=== PATIENT | male | born 1945 | race Caucasian/White ===

== ENCOUNTER → 2022-11-29 | Outpatient (CLI) | payer OTHER ==
[2022-11-29 13:35] VITALS: BP 120/65; PULSE 56; RESP 18; TEMP 98.3
--- NOTE | 2022-11-29 15:24 | P.PAINPG ---
PQRS Measure Charge Sheet Comment: HISTORY OF PRESENT ILLNESS: 77 yr old male as a referral from [facility] presents today w severe and chronic LBP secondary to DDD, spondylosis and facet arthropathy without myelopathy for evaluation. Pt states pain level is provoked at 7/10 in intensity, constant, localized in the lower lumbar spine, achy in character w shooting pain towards . Pain is provoked by standing, lifting, bending. Pain is alleviated by PT x 6 wks in May 2022 which provoked pain, heat, medications (Tyl, Mobic, Neurontin), topical, repositioning, sitting and rest. PMH: OA, HTN, Hyperlipidemia, BPH, GERD, Seasonal Allergies, MDD PSH: L4-L5 Laminectomy w Fusion x2, L5-S1 Hardware SH: Occasional ETOH use, No tobacco use, No illicit drug use. and lives w spouse. Exposed to [employer] in 1965 FH: Non contributory All: See list Meds: See list REVIEW OF ORGAN SYSTEMS: CONSTITUTIONAL: No fevers or chills. No recent weight loss. NEUROLOGICAL: + numbness and tingling along the distal extremities. No seizure disorders or headaches. MUSCULOSKELETAL: + pain PSYCHIATRIC: Denies current depression or suicidal thoughts. Physical Examinations : Constitutional : Cooperative , not in acute distress . Neurologic : Cranial nerve II to XII intact. No focal neurological deficits. Psychiatric : alert & oriented x 3. Matching mood & appropriate affect. Judgment & insight intact. Musculoskeletal : Cervical Spine Motor strength in the deltoid and biceps: Normal right side. Normal Left side Motor strength biceps and the wrist extensors: Normal right side . Normal left side Motor strength in the triceps muscle: Normal right side. Normal left side Deep tendon reflexes: Normal at the biceps. Normal at Brachioradialis. Normal at triceps Vertebral body tenderness to deep palpation over Cervical facet loading test: positive bilaterally Spurling test: positive bilaterally Neck distraction test: positive bilaterally Capo sign: positive bilaterally Lumbar spine Motor strength lower extremities ,thigh and legs 5/5 Right side , 5/5 Left side Deep tendon reflexes : Normal Knee Jerk. Normal Ankle Jerk Vertebral body tenderness over L4 Lumbar facet Loading Test: positive Right / positive Left Range of motion of the lumbar spine Flexion 30 degrees, extension 10 degrees Straight Leg Raise test: Left/ Right positive at 30 degree BL Foot drop Dimitris test: positive right / positive left. Severe tenderness over the Sacroiliac joint on the Right / Left sides Anusha test: positive bilaterally Seated flexion test: positive bilaterally. Sacral spine : Severe tenderness over the Sacroiliac joint: right side / left side Range of motion: Flexion of the lumbar spine <60 degrees Range of motion: Extension of the lumbar spine <20 degrees Gaenslen's Test positive Justo's Test positive Dimitris test: positive right side / left side Thigh Thrust Test Sacral Thrust Test Imaging: MRI non contrast of the lumbar spoine from 06/27/22 reviewed Assessment/ Plan : LumbaR DDD Recommendation of SOHAN L4-L5 #1. May need a series fo injections for optimal pain relief. Risks, benefits of procedure discussed and patient verbalized understanding. Admits to aspirin or anti- coagulant use or medical history of diabetes. Protocol for discontinuation/ continuation of medications ramone procedure discussed. All questions answered. I have spent greater than 30 minutes on patient care today. Dr Loyola was available by phone for the evaluation of this patient. The time was used to review the medical records including relevant urine studies and Prescription history (MAPs), review of the available imaging, evaluation and examination of the patient, coordination of care with the medical staff and if applicable referring physicians, as well as creation of the medical record Home Medications: Ambulatory Orders Aspirin [Adult Low Dose Aspirin EC] 81 mg PO DAILY 11/29/22 Controlled Substance Measures - Controlled Substance Measures Is patient prescribed a controlled substance at discharge?: No
== END | disposition home or self-care (01) ==
LOC: PNWHC3 12:45
PROVIDERS: ATTEND Specialist
DX: M51.36 Other intervertebral disc degeneration, lumbar region (principal); M47.816 Spondylosis without myelopathy or radiculopathy, lumbar region; E11.9 Type 2 diabetes mellitus without complications; I10 Essential (primary) hypertension; E78.5 Hyperlipidemia, unspecified; N40.0 Benign prostatic hyperplasia without lower urinary tract symptoms; K21.9 Gastro-esophageal reflux disease without esophagitis; M19.90 Unspecified osteoarthritis, unspecified site; F32.9 Major depressive disorder, single episode, unspecified; J30.2 Other seasonal allergic rhinitis
CPT/HCPCS: 99202

== ENCOUNTER 2022-12-21 10:06 | Day surgery (SDC) | payer OTHER ==
[2022-12-20 12:51] VITALS: BMI 30.9
[~2022-12-21 10:06] MED LIST: LACTATED RINGERS 1,000 ML IV SCH; LIDOCAINE 1% (10MG/ML) FOR IV START INTRADERMA PRN
[2022-12-21 10:29] VITALS: TEMP 97.8
[2022-12-21] MEDS ORDERED: MIDAZOLAM 2 MG/2 ML VIAL ONE (10:36)
[2022-12-21] MEDS ORDERED: methylPREDNISolone ACETATE 40 MG/ML 1 ML VIAL ONE (10:36)
[2022-12-21] MEDS ORDERED: IOPAMIDOL M200 10 ML VIAL ONE (10:36)
[2022-12-21] MEDS ORDERED: fentaNYL (PF) 50 MCG/ML 2 ML AMP ONE (10:36)
--- NOTE | 2022-12-21 10:47 | P.PCN ---
Date of Procedure: 12/21/22 Procedure(s) Performed: PREOPERATIVE DIAGNOSIS: 1- Lumbar Degenerative Disc Diseases 2-Lumbar spondylosis with Facet arthropathy without myelopathy. 3-lumbar failed back surgery syndrome POSTOPERATIVE DIAGNOSIS: 1-lumbar degenerative disc disease. 2-lumbar spondylosis with facet arthropathy without myelopathy. 3-lumbar failed back surgery syndrome. PROCEDURE 1. Lumbar epidural steroid injection under fluoroscopic guidance at the L4-5 level. (Fluoroscopy imaging was available in radiology department) 2. Lumbar epidurogram. ANESTHESIA: moderate sedation with intravenous Versed 1 mg ,and fentanyle 50 Mcg Sedation start time : 1036 Sedation end time : 1044 EBL: Minimal PROCEDURE INDICATION: The patient with low back pain and radiculitis symptoms unresponsive to conservative treatment. Fluoroscopy was used to optimize visualization of the needle placement and to maximize safety. PROCEDURE DESCRIPTION / TECHNIQUE: The patient was seen and identified in the preoperative area. Risks, benefits, complications including but not limited to infections ,bleeding ,allergic reaction to the medications ,nerve damage and not complete pain releife , and alternatives were discussed with the patient. The patient agreed to proceed with the procedure and signed the consent. IV was started, and vital signs were stable. Patient was taken to the OR and time out was completed. The patient was placed in the prone position on procedure table and a pillow was placed under the abdomen to reduce lumbar lordosis. The lumbosacral area was prepped and draped in the usual sterile fashion.ere closely monitored during the procedure. Conscious sedation was used during the procedure to decrease patients anxiety. Vital signs was monitered during the entire procedure. Using anterior-posterior fluoroscopy, the L4-5 interlaminar space was identified and the skin over this site was marked and then infiltrated with 1% lidocaine subcutaneously. Subsequently, a 20-gauge Tuohy epidural needle was inserted and advanced toward the epidural space using the ``Loss of resistance technique and guided by AP and lateral fluoroscopy. The correct needle position in the epidural space was verified with the injection of 2 mL of the water soluble contrast dye Isovue 200 contrast and observing an excellent epidurogram with the epidural spread of the dye, after negative aspiration for blood and CSF and in the absence of paresthesias. Again after negative aspiration, a 6 ml mixture containing 40 mg of Depo-medrol ( Preservetive Free ), and 2 ml of preservative free Normal Saline, and 2 ml of preservative free lidocaine 1% solution was injected and a washout of epidurogram was seen. Needle was withdrawn intact, skin was cleansed, and bandages were applied. COMPLICATIONS: None DISPOSITION / PLANS: The patient was placed in a supine position and transferred to the recovery area in a stable condition for observation. There was no evidence of lower extremity motor or sensory deficit after the procedure. Cynthia ent was discharged from the recovery room after meeting discharge criteria. Home discharge instructions were given to the patient by the staff. The patient was reexamined prior to discharge. The patient will schedule a follow up in the clinic in 2-4 weeks.
[2022-12-21] MEDS ORDERED: IV FLUID CONTINUATION 1,000 ML IV ONE (10:51)
--- NOTE | 2022-12-21 11:06 | FL ---
Intraoperative/procedural fluoroscopic services were provided. Total fluoroscopy time is 2.6 seconds with a total of 1 submitted images to PACS. Please see the operative/procedural note for further deta ils. DAP: [id number] mGym2
[2022-12-21 11:16] VITALS: BP 111/68; PULSE 56; RESP 14
== END 2022-12-21 11:44 | disposition home or self-care (01) ==
LOC: ORPAIN 10:06
PROVIDERS: ATTEND Specialist
DX: M51.16 Intervertebral disc disorders with radiculopathy, lumbar region (principal); M47.26 Other spondylosis with radiculopathy, lumbar region; M96.1 Postlaminectomy syndrome, not elsewhere classified
CPT/HCPCS: 62323; J2250; J1030; J3010; Q9966

== ENCOUNTER → 2023-01-15 | Outpatient (CLI) | payer OTHER ==
[2023-01-15 13:57] VITALS: BP 113/63; PULSE 61; RESP 15; TEMP 97.7
--- NOTE | 2023-01-15 14:32 | P.PAINPG ---
PQRS Measure Charge Sheet Comment: A 77 yr old male w at side with a history of severe and chronic LBP x 1 yr secondary to lumbar DDD and spondylosis with facet arthropathy without myelopathy presents today for evaluation s/p SOHAN L4-L5. Pt states he experienced 20 % pain relief x 1 day s/p procedure. Pain level is provoked at 8 /10 in i ntensity, constant, localized in the lumbar spine, achy in character without shooting pain. Pain is provoked by bending or standing from a sitting position. Pain is alleviated with PT x 6 wks in 2021 without relief, medications, topical, heat, repositioning and rest. Interventional pain procedures completed include SOHAN L4-L5 Patient is currently on Tyl Arthritis, Mobic Patient denies any side effects of the medication(s), denies excessive drowsiness or sleepiness, denies suicidal ideation and reports that the current pain medication is helping to control the pain and improve activities of daily living. Patient denies any motor or sensory deficits. Patient denies any fever or night sweats, denies any change in the bowel movements or urination. Physical Examination: -Constitutional: Cooperative. Not in acute distress . - Neurologic: Cranial nerve II to XII intact. No focal neurological deficits. - Psychatric: Alert & oriented x 3. Matching mood & appropriate affect. Judgment and insight intact. - Musculoskeletal: Cervical spine: Muscle bulk/ tone/ strength in the bilateral upper extremities normal Vertebral body tenderness to palpation over Spurling test positive Distraction test positive Facet loading test positive TTP Thoracic spine Muscle bulk / tone/ strength in the bilateral paraspinal muscles normal Vertebral body tender to palpation over Facet loading test positive TTP Lumbar spine: Motor bulk/ tone/ strength lower extremities , thigh and legs : 5/5 Deep tendon reflexes : Normal Knee Jerk. Normal Ankle Jerk . Vertebral body tenderness to palpation over Stanton Test positive Lumbar Facet Loading Test positive over BL L4-L5, L5-S1 Straight Leg Raise: positive at 30 degrees right side/ left side Gaenslen's Test positive Sacral spine : Severe tenderness over the Sacroiliac joint: right side / left side Range of motion: Flexion of the lumbar spine <60 degrees Range of motion: Extension of the lumbar spine <20 degrees Gaenslen's Test positive right side / left side Dimitris test: positive right side / left side Thigh Thrust Test positive right side / left side Sacral Thrust Test positive right side / left side Assessment and plan: Chronic LBP secondary to lumbar DDD, spondylosis with facet arthropathy without myelopathy Recommendation of BL MBB L4-L5, L5-S1 #1. May need a series of injections, up until RFA, for optimal pain relief. Risks, benefits of procedure discussed and pt verbalized understanding. Admits to anticoagulant use or medical history of diabetes. Protocol for discontinuation/ continuation of medications ramone procedure discussed. Minimal anesthesia provided, if clinically indicated, consisting of Versed and Fentanyl. All questions answered. I have spent less than 30 minutes on patient care today. Dr Loyola was available by phone for the evaluation of this patient. The time was used to review the medical records including relevant urine studies and Prescription history (MAPs), review of the available imaging, evaluation and examination of the patient, coordination of care with the medical staff and if applicable referring physicians, as well as creation of the medical record PQRS Narrative: Hx Alcohol Use (MH) Yes: I GLASS OF RED WINE DAILY Home Medications: Ambulatory Orders Aspirin [Adult Low Dose Aspirin EC] 81 mg PO DAILY 11/29/22 Atorvastatin [Lipitor] 80 mg PO DAILY 11/29/22 Calcium Carbonate/Vitamin D3 [Calcium 600 mg-Vit D3 5 mcg (200 unit)] 1 each PO DAILY 11/29/22 Carboxymethylcellulose Sodium 1 dropper BOTH EYES HS 11/29/22 Clopidogrel [Plavix] 75 mg PO DAILY 11/29/22 Docusate Sodium [Dok] 100 mg PO BID 11/29/22 Finasteride [Proscar] 5 mg PO DAILY 11/29/22 Fluticasone Nasal [place] [Flonase Nasal [place]] 1 spray EA NOSTRIL DAILY PRN 11/29/22 Folic Acid 1 mg PO DAILY 11/29/22 Gabapentin [Neurontin] 400 mg PO BID 11/29/22 Isosorbide Mononitrate [Isosorbide Mononitrate ER] 60 mg PO DAILY 11/29/22 Levothyroxine Sodium [Synthroid] 125 mcg PO DAILY 11/29/22 Lubiprostone [Amitiza] 24 mcg PO BID 11/29/22 Meloxicam [Mobic] 15 mg PO DAILY PRN 11/29/22 [place]-3/Dha/Epa/Fish Oil [Fish Oil 1,000 mg Softgel] 1 cap PO BID 11/29/22 Pantoprazole Sodium [Protonix] 20 mg PO DAILY 11/29/22 Tamsulosin [Flomax] 0.4 mg PO BID 11/29/22 Triamterene-Hctz 37.5-25Mg [Dyazide 37.5-25 Capsule] 1 cap PO DAILY 11/29/22 Venlafaxine HCl [Effexor] 37.5 mg PO HS 11/29/22 bisacodyL [Dulcolax] 5 mg PO DAILY 11/29/22 cycloSPORINE 1 dropper BOTH EYES BID 11/29/22 diphenhydrAMINE HCL 25 mg PO Q6H PRN 11/29/22 Cyanocobalamin (Vitamin B-12) [Vitamin B-12] 1,000 mcg PO DAILY 12/20/22 Sucralfate [Carafate] 2 gm PO BID 12/20/22 polyethylene glycoL 3350 [Miralax] 17 gm PO BID 12/20/22 Controlled Substance Measures - Controlled Substance Measures Is patient prescribed a controlled substance at discharge?: No
== END ==
LOC: PNWHC3 12:45
PROVIDERS: ATTEND Specialist
DX: M51.37 Other intervertebral disc degeneration, lumbosacral region (principal); M47.817 Spondylosis without myelopathy or radiculopathy, lumbosacral region; G89.29 Other chronic pain; Z79.82 Long term (current) use of aspirin
CPT/HCPCS: 99211

== ENCOUNTER 2023-01-26 09:21 | Day surgery (SDC) | payer OTHER ==
[2023-01-22 09:43] VITALS: BMI 30.5
[2023-01-26] MEDS ORDERED: LACTATED RINGERS 1,000 ML IV ONE (10:01)
[2023-01-26] MEDS ORDERED: fentaNYL (PF) 50 MCG/ML 2 ML AMP ONE (10:03)
[2023-01-26] MEDS ORDERED: MIDAZOLAM 2 MG/2 ML VIAL ONE (10:03)
[2023-01-26] MEDS ORDERED: ROPIVACAINE 5 MG/ML 20 ML AMPULE ONE (10:03)
[2023-01-26] MEDS ORDERED: methylPREDNISolone ACETATE 40 MG/ML 1 ML VIAL ONE (10:03)
[2023-01-26 10:06] VITALS: TEMP 98.1
--- NOTE | 2023-01-26 10:21 | P.PCN ---
Date of Procedure: 01/26/23 Procedure(s) Performed: PREOPERATIVE DIAGNOSIS : 1- Lumbar spondylosis with Facet Arthropathy without myelopathy . 2- Lumber degenerative disc disease POSTOPERATIVE DIAGNOSIS: 1- Lumbar spondylosis with Facet Arthropathy without myelopathy . 2- Lumber degenerative disc disease PROCEDURE: Diagnostic bilateral L3 , L4 , and L5 medial branch block under fluoroscopy guidance(fluoroscopy images available in the radiology Department ) ( To target the facet joint between Bilateral L4- 5 , and L5-S1 )#1st ANESTHESIA:, Monitored anesthesia care as per anesthesia department. EBL: Minimal COMPLICATION: None PROCEDURE INDICATION: Chronic low back pain secondary to Facet arthropathy unresponsive to conservative treatment. PROCEDURE DESCRIPTION: the patient was seen and identified in the preop holding area , risks and benefits and possible complications of the procedure and alternative were discussed with the patient, and the patient agreed to proceed with the procedure and signed the consent and vital signs monitored during the procedure and fluoroscopy was used to maximize the benefit and accuracy of the needle placement, and sedation was given to decrease patient anxiety, patient was taken to the procedure room and placed in prone position vital signs monitored in the back prepped with chlorhexidine X3 then under strict sterile technique using a right oblique fluoroscopy ,the junction of the transverse process and the superior articulating process of the right L3 , L4 , and L5 vertebra which corresponding to the fluoroscopy image of the eye of the Andre dog on the block side for the medial branches and subsequently , after local infiltration of skin and subcu tissuies with Ropivacaine 0.5 % , one mL at each level ,then 22-gauge Quincke-type needles , 3 needle was used , each one of them placed at the junction of the base of the transverse process and the superior articular process at the appropriate level, and the needle was advanced until the periosteum contacted, needle placement confirmed with AP oblique and lateral view and after appropriate needle placement confirmed, and after negative aspiration for heme and CSF and there was no paresthesia 1-1/2 mL of Ropivacaine 0.5% mixed with 20 mg Depo-Medrol , then half mL injected at each level after negative aspiration the needle subsequently removed and the same procedure repeated for the left side at left side at L3 , L4 and L5 levels. At the end of the procedure and the needles removed and a bandage applied after the skin was cleaned the cleaning solution patient taken to recovery room in stable condition and monitors in the recovery room for 20-30 minutes and discharged home in stable condition after discharge criteria met and patient will follow up with the pain clinic in 2-4 weeks
[2023-01-26] MEDS ORDERED: IV FLUID CONTINUATION 1,000 ML IV ONE ×2 (10:29)
[2023-01-26 10:42] VITALS: BP 114/58; PULSE 63; RESP 16
--- NOTE | 2023-01-26 10:55 | FL ---
EXAMINATION TYPE: FL guided pain mgmt statistic DATE OF EXAM: 01/26/2023 HISTORY: Fluoroscopy time Total dose area product (DAP) in uGy*m?, mGy*cm? (or similar): 11 SECS DAP 0.58980 IMPRESSION: 1. Fluoroscopy time.
== END 2023-01-26 11:23 | disposition home or self-care (01) ==
LOC: ORPAIN 09:21
PROVIDERS: ATTEND Specialist
DX: M51.36 Other intervertebral disc degeneration, lumbar region (principal); M47.816 Spondylosis without myelopathy or radiculopathy, lumbar region; G89.29 Other chronic pain; I25.10 Atherosclerotic heart disease of native coronary artery without angina pectoris; E78.5 Hyperlipidemia, unspecified; Z95.5 Presence of coronary angioplasty implant and graft; G47.33 Obstructive sleep apnea (adult) (pediatric); K21.9 Gastro-esophageal reflux disease without esophagitis; Z98.890 Other specified postprocedural states; Z79.899 Other long term (current) drug therapy
CPT/HCPCS: 64493; 64494 ×2; J2250; J1030; J3010; J2795

== ENCOUNTER → 2023-02-15 | Outpatient (CLI) | payer OTHER ==
[2023-02-15 14:28] VITALS: BP 116/68; PULSE 58; RESP 15; TEMP 98
--- NOTE | 2023-02-15 14:35 | P.PAINPG ---
Objective - Vital Signs Vital signs: Intake & Output 02/14/23 02/15/23 02/15/23 18:59 06:59 18:59 Weight 90.718 kg PQRS Measure Charge Sheet Comment: A 77 yr old male w at side with a history of severe and chronic LBP x 1 yr secondary to lumbar DDD and spondylosis with facet arthropathy without myelopathy presents today for evaluation s/p BL MBB L3-L5 #1. Pt states he experienced 80 % pain relief x 5 day s/p procedure. Pain level is provoked at 9 /10 in intensity, constant, localized in the lumbar spine, achy in character without shooting pain. Pain is provoked by bending or standing from a sitting position. Pain is alleviated with PT x 6 wks in 2021 without relief, medications, topical, heat, repositioning and rest. Oswestry axial pain score of 15. Interventional pain procedures completed include SOHAN L4-L5, BL MBB L3-L5 x1 Patient is currently on Tyl Arthritis, Mobic Patient denies any side effects of the medication(s), denies excessive drowsiness or sleepiness, denies suicidal ideation and reports that the current pain medication is helping to control the pain and improve activities of daily living. Patient denies any motor or sensory deficits. Patient denies any fever or night sweats, denies any change in the bowel movements or urination. Physical Examination: -Constitutional: Cooperative. Not in acute distress . - Neurologic: Cranial nerve II to XII intact. No focal neurological deficits. - Psychatric: Alert & oriented x 3. Matching mood & appropriate affect. Judgment and insight intact. - Musculoskeletal: Cervical spine: Muscle bulk/ tone/ strength in the bilateral upper extremities normal Vertebral body tenderness to palpation over Spurling test positive Distraction test positive Facet loading test positive TTP Thoracic spine Muscle bulk / tone/ strength in the bilateral paraspinal muscles normal Vertebral body tender to palpation over Facet loading test positive TTP Lumbar spine: Motor bulk/ tone/ strength lower extremities , thigh and legs : 5/5 Deep tendon reflexes : Normal Knee Jerk. Normal Ankle Jerk . Vertebral body tenderness to palpation over Stanton Test positive Lumbar Facet Loading Test positive over BL L4-L5, L5-S1 Straight Leg Raise: positive at 30 degrees right side/ left side Gaenslen's Test positive Sacral spine : Severe tenderness over the Sacroiliac joint: right side / left side Range of motion: Flexion of the lumbar spine <60 degrees Range of motion: Extension of the lumbar spine <20 degrees Gaenslen's Test positive right side / left side Dimitris test: positive right side / left side Thigh Thrust Test positive right side / left side Sacral Thrust Test positive right side / left side Assessment and plan: Chronic LBP secondary to lumbar DDD, spondylosis with facet arthropathy without myelopathy Recommendation of BL MBB L4-L5, L5-S1 #2. May need a series of injections, up until RFA, for optimal pain relief. Risks, benefits of procedure discussed and pt verbalized understanding. Admits to anticoagulant use or medical history of diabetes. Protocol for discontinuation/ continuation of medications ramone procedure discussed. Minimal anesthesia provided, if clinically indicated, consisting of Versed and Fentanyl. All questions answered. I have spent less than 30 minutes on patient care today. Dr Loyola was available by phone for the evaluation of this patient. The time was used to review the medical records including relevant urine studies and Prescription history (MAPs), review of the available imaging, evaluation and examination of the patient, coordination of care with the medical staff and if applicable referring physicians, as well as creation of the medical record PQRS Narrative: Hx Alcohol Use (MH) Yes: I GLASS OF RED WINE DAILY Home Medications: Ambulatory Orders Aspirin [Adult Low Dose Aspirin EC] 81 mg PO DAILY 11/29/22 Atorvastatin [Lipitor] 80 mg PO DAILY 11/29/22 Calcium Carbonate/Vitamin D3 [Calcium 600 mg-Vit D3 5 mcg (200 unit)] 1 each PO DAILY 11/29/22 Carboxymethylcellulose Sodium 1 dropper BOTH EYES HS 11/29/22 Clopidogrel [Plavix] 75 mg PO DAILY 11/29/22 Docusate Sodium [Dok] 100 mg PO BID 11/29/22 Finasteride [Proscar] 5 mg PO DAILY 11/29/22 Fluticasone Nasal [place] [Flonase Nasal [place]] 1 spray EA NOSTRIL DAILY PRN 11/29/22 Folic Acid 1 mg PO DAILY 11/29/22 Gabapentin [Neurontin] 400 mg PO BID 11/29/22 Isosorbide Mononitrate [Isosorbide Mononitrate ER] 60 mg PO DAILY 11/29/22 Levothyroxine Sodium [Synthroid] 125 mcg PO DAILY 11/29/22 Lubiprostone [Amitiza] 24 mcg PO BID 11/29/22 Meloxicam [Mobic] 15 mg PO DAILY PRN 11/29/22 [place]-3/Dha/Epa/Fish Oil [Fish Oil 1,000 mg Softgel] 1 cap PO BID 11/29/22 Pantoprazole Sodium [Protonix] 20 mg PO DAILY 11/29/22 Tamsulosin [Flomax] 0.4 mg PO BID 11/29/22 Triamterene-Hctz 37.5-25Mg [Dyazide 37.5-25 Capsule] 1 cap PO DAILY 11/29/22 Venlafaxine HCl [Effexor] 37.5 mg PO HS 11/29/22 bisacodyL [Dulcolax] 5 mg PO DAILY 11/29/22 cycloSPORINE 1 dropper BOTH EYES BID 11/29/22 diphenhydrAMINE HCL 25 mg PO Q6H PRN 11/29/22 Cyanocobalamin (Vitamin B-12) [Vitamin B-12] 1,000 mcg PO DAILY 12/20/22 Sucralfate [Carafate] 2 gm PO BID 12/20/22 polyethylene glycoL 3350 [Miralax] 17 gm PO BID 12/20/22 Controlled Substance Measures - Controlled Substance Measures Is patient prescribed a controlled substance at discharge?: No
== END ==
LOC: PNWHC3 13:55
PROVIDERS: ATTEND Specialist
DX: M51.37 Other intervertebral disc degeneration, lumbosacral region (principal); M47.817 Spondylosis without myelopathy or radiculopathy, lumbosacral region; G89.29 Other chronic pain; Z79.82 Long term (current) use of aspirin
CPT/HCPCS: 99211

== ENCOUNTER 2023-02-27 08:37 | Day surgery (SDC) | payer OTHER ==
[2023-02-20 13:10] VITALS: BMI 29.4
[2023-02-27] MEDS ORDERED: LACTATED RINGERS 1,000 ML IV SCH (08:49)
[2023-02-27 09:03] VITALS: TEMP 98.1
[2023-02-27] MEDS ORDERED: fentaNYL (PF) 50 MCG/ML 2 ML AMP ONE (09:12)
[2023-02-27] MEDS ORDERED: MIDAZOLAM 2 MG/2 ML VIAL ONE (09:12)
[2023-02-27] MEDS ORDERED: ROPIVACAINE 5 MG/ML 20 ML AMPULE ONE (09:12)
[2023-02-27] MEDS ORDERED: methylPREDNISolone ACETATE 40 MG/ML 1 ML VIAL ONE (09:12)
--- NOTE | 2023-02-27 09:26 | P.PCN ---
Date of Procedure: 02/27/23 Procedure(s) Performed: PREOPERATIVE DIAGNOSIS : 1- Lumbar spondylosis with Facet Arthropathy without myelopathy . 2- Lumber degenerative disc disease POSTOPERATIVE DIAGNOSIS: 1- Lumbar spondylosis with Facet Arthropathy without myelopathy . 2- Lumber degenerative disc disease PROCEDURE: Diagnostic bilateral L3 , L4 , and L5 medial branch block under fluoroscopy guidance(fluoroscopy images available in the radiology Department ) ( To target the facet joint between Bilateral L4- 5 , and L5-S1 )#2nd ANESTHESIA:, Moderate sedation with Versed 2 mg and fentanyl 50 g, ( sedation was started 0912, end at 0923 ) EBL: Minimal COMPLICATION: None PROCEDURE INDICATION: Chronic low back pain secondary to Facet arthropathy unresponsive to conservative treatment. PROCEDURE DESCRIPTION: the patient was seen and identified in the preop holding area , risks and benefits and possible complications of the procedure and alternative were discussed with the patient, and the patient agreed to proceed with the procedure and signed the consent and vital signs monitored during the procedure and fluoroscopy was used to maximize the benefit and accuracy of the needle placement, and sedation was given to decrease patient anxiety, patient was taken to the procedure room and placed in prone position vital signs monitored in the back prepped with chlorhexidine X3 then under strict sterile technique using a right oblique fluoroscopy ,the junction of the transverse process and the superior articulating process of the right L3 , L4 , and L5 vertebra which corresponding to the fluoroscopy image of the eye of the Andre dog on the block side for the medial branches and subsequently , after local infiltration of skin and subcu tissuies with Ropivacaine 0.5 % , one mL at each level ,then 22-gauge Quincke-type needles , 3 needle was used , each one of them placed at the junction of the base of the transverse process and the superior articular process at the appropriate level, and the needle was advanced until the periosteum contacted, needle placement confirmed with AP oblique and lateral view and after appropriate needle placement confirmed, and after negative aspiration for heme and CSF and there was no paresthesia 1-1/2 mL of Ropivacaine 0.5% mixed with 20 mg Depo-Medrol , then half mL injected at each level after negative aspiration the needle subsequently removed and the same procedure repeated for the left side at left side at L3 , L4 and L5 levels. At the end of the procedure and the needles removed and a bandage applied after the skin was cleaned the cleaning solution patient taken to recovery room in stable condition and monitors in the recovery room for 20-30 minutes and discharged home in stable condition after discharge criteria met and patient will follow up with the pain clinic in 2-4 weeks
[2023-02-27] MEDS ORDERED: LACTATED RINGERS 1,000 ML IV ONE (09:30)
--- NOTE | 2023-02-27 09:39 | FL ---
Fluoroscopy History: BILAT LUM FACET BLOCK 8 SEC FL TIME USED DAP [id number] SIMA LUMBAR FACETS
[2023-02-27 09:47] VITALS: BP 110/52; PULSE 55; RESP 15
== END 2023-02-27 10:08 | disposition home or self-care (01) ==
LOC: ORPAIN 08:37
PROVIDERS: ATTEND Specialist
DX: M51.36 Other intervertebral disc degeneration, lumbar region (principal); M47.816 Spondylosis without myelopathy or radiculopathy, lumbar region; G89.29 Other chronic pain; Z79.01 Long term (current) use of anticoagulants
CPT/HCPCS: 64494 ×2; 99152; 64493; J2250; J1030; J3010; J2795

== ENCOUNTER → 2023-03-28 | Outpatient (CLI) | payer OTHER ==
[2023-03-28 14:29] VITALS: BP 115/63; PULSE 58; RESP 16; TEMP 97.8
--- NOTE | 2023-04-04 08:03 | P.PAINPG ---
PQRS Measure Charge Sheet Comment: A 77 yr old male w at side with a history of severe and chronic LBP x 1 yr secondary to lumbar DDD and spondylosis with facet arthropathy without myelopathy presents today for evaluation s/p BL MBB L3-L5 #2. Pt states he experienced 80% pain relief x 7 days s/p procedure. Pain level is provoked at 9 /10 in intensity, constant, localized in the lumbar spine, achy in character without shooting pain. Pain is provoked by bending or standing from a sitting position. Pain is alleviated with PT x 6 wks in 2021 without relief, medications, topical, heat, repositioning and rest. Oswestry axial pain score of 15. Interventional pain procedures completed include SOHAN L4-L5, BL MBB L3-L5 x2 Patient is currently on Tyl Arthritis, Mobic Patient denies any side effects of the medication(s), denies excessive drowsiness or sleepiness, denies suicidal ideation and reports that the current pain medication is helping to control the pain and improve activities of daily living. Patient denies any motor or sensory deficits. Patient denies any fever or night sweats, denies any change in the bowel movements or urination. Physical Examination: -Constitutional: Cooperative. Not in acute distress . - Neurologic: Cranial nerve II to XII intact. No focal neurological deficits. - Psychatric: Alert & oriented x 3. Matching mood & appropriate affect. Judgment and insight intact. - Musculoskeletal: Cervical spine: Muscle bulk/ tone/ strength in the bilateral upper extremities normal Vertebral body tenderness to palpation over Spurling test positive Distraction test positive Facet loading test positive TTP Thoracic spine Muscle bulk / tone/ strength in the bilateral paraspinal muscles normal Vertebral body tender to palpation over Facet loading test positive TTP Lumbar spine: Motor bulk/ tone/ strength lower extremities , thigh and legs : 5/5 Deep tendon reflexes : Normal Knee Jerk. Normal Ankle Jerk . Vertebral body tenderness to palpation over Stanton Test positive Lumbar Facet Loading Test positive over BL L4-L5, L5-S1 Straight Leg Raise: positive at 30 degrees right side/ left side Gaenslen's Test positive Sacral spine : Severe tenderness over the Sacroiliac joint: right side / left side Range of motion: Flexion of the lumbar spine <60 degrees Range of motion: Extension of the lumbar spine <20 degrees Gaenslen's Test positive right side / left side Dimitris test: positive right side / left side Thigh Thrust Test positive right side / left side Sacral Thrust Test positive right side / left side Assessment and plan: Chronic LBP secondary to lumbar DDD, spondylosis with facet arthropathy without myelopathy Recommendation of BL RFA L4-L5, L5-S1. Pt exhibited optimal pain relief w prior facet blocks of the medial branches. Risks, benefits of procedure discussed and pt verbalized understanding. Admits to anticoagulant use or medical history of diabetes. Protocol for discontinuation/ continuation of medications ramone procedure discussed. Minimal anesthesia provided, if clinically indicated, consisting of Versed and Fentanyl. All questions answered. I have spent less than 30 minutes on patient care today. Dr Loyola was available by phone for the evaluation of this patient. The time was used to review the medical records including relevant urine studies and Prescription history (MAPs), review of the available imaging, evaluation and examination of the patient, coordination of care with the medical staff and if applicable referring physicians, as well as creation of the medical record PQRS Narrative: Hx Alcohol Use (MH) Yes: I GLASS OF RED WINE DAILY Home Medications: Ambulatory Orders Aspirin [Adult Low Dose Aspirin EC] 162 mg PO BID 11/29/22 Atorvastatin [Lipitor] 80 mg PO DAILY 11/29/22 Calcium Carbonate/Vitamin D3 [Calcium 600 mg-Vit D3 5 mcg (200 unit)] 1 each PO BID 11/29/22 Carboxymethylcellulose Sodium 1 dropper BOTH EYES HS 11/29/22 Clopidogrel [Plavix] 75 mg PO DAILY 11/29/22 Docusate Sodium [Dok] 100 mg PO BID 11/29/22 Finasteride [Proscar] 5 mg PO DAILY 11/29/22 Fluticasone Nasal [place] [Flonase Nasal [place]] 1 spray EA NOSTRIL DAILY PRN 11/29/22 Folic Acid 1 mg PO DAILY 11/29/22 Gabapentin [Neurontin] 400 mg PO BID 11/29/22 Isosorbide Mononitrate [Isosorbide Mononitrate ER] 60 mg PO DAILY 11/29/22 Levothyroxine Sodium [Synthroid] 125 mcg PO DAILY 11/29/22 Lubiprostone [Amitiza] 24 mcg PO BID 11/29/22 [place]-3/Dha/Epa/Fish Oil [Fish Oil 1,000 mg Softgel] 1 cap PO BID 11/29/22 Pantoprazole Sodium [Protonix] 20 mg PO DAILY 11/29/22 Tamsulosin [Flomax] 0.4 mg PO BID 11/29/22 Triamterene-Hctz 37.5-25Mg [Dyazide 37.5-25 Capsule] 1 cap PO DAILY 11/29/22 Venlafaxine HCl [Effexor] 37.5 mg PO HS 11/29/22 bisacodyL [Dulcolax] 5 mg PO DAILY 11/29/22 cycloSPORINE 3 dropper BOTH EYES BID 11/29/22 diphenhydrAMINE HCL 25 mg PO Q6H PRN 11/29/22 Cyanocobalamin (Vitamin B-12) [Vitamin B-12] 1,000 mcg PO DAILY 12/20/22 Sucralfate [Carafate] 2 gm PO BID 12/20/22 polyethylene glycoL 3350 [Miralax] 34 gm PO QAM 12/20/22 Ipratropium (Unknown Dose) 1 dose INHALATION DIRECTED PRN 02/20/23 QUEtiapine [SEROquel] 75 mg PO HS 02/20/23 polyethylene glycoL 3350 [Miralax] 17 gm PO HS 02/20/23 Controlled Substance Measures - Controlled Substance Measures Is patient prescribed a controlled substance at discharge?: No
== END ==
LOC: PNWHC3 13:57
PROVIDERS: ATTEND Specialist
DX: M51.37 Other intervertebral disc degeneration, lumbosacral region (principal); M47.817 Spondylosis without myelopathy or radiculopathy, lumbosacral region; G89.29 Other chronic pain; Z79.82 Long term (current) use of aspirin
CPT/HCPCS: 99211

== ENCOUNTER 2023-05-17 08:48 | Day surgery (SDC) | payer OTHER ==
[2023-05-16 09:43] VITALS: BMI 29.3
[~2023-05-17 08:48] MED LIST changes: -LIDOCAINE 1% (10MG/ML) FOR IV START INTRADERMA PRN
[2023-05-17 09:28] VITALS: TEMP 98
[2023-05-17] MEDS ORDERED: ROPIVACAINE 5MG/ML 20ML VIAL ONE (09:46)
[2023-05-17] MEDS ORDERED: methylPREDNISolone ACETATE 40 MG/ML 1 ML VIAL ONE (09:46)
--- NOTE | 2023-05-17 10:01 | P.PCN ---
Date of Procedure: 05/17/23 Procedure(s) Performed: Procedure= trigger point injections lumbar paraspinal muscles bilaterally , 3 on the right side from L3 to S1, and 4 on the left side from L3 to S1 Preoperative diagnosis= 1-myofascial pain syndrome lumbar paraspinal muscles 2-lumbar degenerative disc disease 3-lumbar facet arthropathy Postoperative diagnosis=Same as preop Diagnosis . Complication = none Condition= stable Anesthesia= none Indication for the procedure= patient complaining of low back pain , examination was positive for multiple trigger point in the lumbar paraspinal muscles bilaterally and patient diagnosed with myofascial pain syndrome and is here to have trigger point injections Description of the procedure= procedure risk and benefits discussed with the patient, including but not limited, risk of infection and bleeding, and ALLERGIC reaction to the medication and not complete pain relief and patient agreed with the preceding patient taken to the operating room, placed in sitting position or standard monitors applied to the patient then after induction of anesthesia back prepped with chlorhexidine 3 times , then under sterile technique each of the trigger point that was marked in the preop holding area 3 on the right side lumbar paraspinal muscles and 4 on the left side lumbar paraspinal muscles each one of them injected with the 2 mL of the mixture of ropivacaine 0.5% 14 ML mixed with 40 mg of Depo-Medrol and 2 mL of the mixture injected at each trigger point after negative aspiration, using 25-gauge needle, injection done after negative aspiration under was no paresthesia during the injection patient tolerated the procedure well without any complications and he will follow up in the pain clinic in a few weeks
[2023-05-17 10:09] VITALS: BP 113/59; PULSE 53; RESP 20
== END 2023-05-17 10:10 ==
LOC: ORPAIN 08:48
PROVIDERS: ATTEND Specialist
DX: M79.18 Myalgia, other site (principal); M47.816 Spondylosis without myelopathy or radiculopathy, lumbar region; M51.36 Other intervertebral disc degeneration, lumbar region; Z79.82 Long term (current) use of aspirin; Z79.02 Long term (current) use of antithrombotics/antiplatelets
CPT/HCPCS: 20553; J1030; J2795

== ENCOUNTER → 2023-06-13 | Outpatient (CLI) | payer OTHER ==
[2023-06-13 12:15] VITALS: BP 113/67; PULSE 51; RESP 15; TEMP 97.2
--- NOTE | 2023-06-13 15:04 | P.PAINPG ---
PQRS Measure Charge Sheet Comment: A 77 yr old male w at side with a history of severe and chronic LBP x 1 yr secondary to lumbar DDD and spondylosis with facet arthropathy without myelopathy presents today for evaluation s/p BL TPIs L3-S1 #1. Pt states he experienced 40 % pain relief which is ongoing s/p procedure. Pain level is provoked at 5 /10 in intensity, constant, localized in the lumbar spine, predominantly axial, achy in character without occasional shooting pain. Pain is provoked by bending or standing from a sitting position. Pain is alleviated with injections, PT x 6 wks in 2021 without relief, medications, topical, heat, repositioning and rest. Oswestry axial pain score of 12. Interventional pain procedures completed include SOHAN L4-L5, BL RFA L3-L5, BL TPIs L3-S1 x1 Patient is currently on Mobic Patient denies any side effects of the medication(s), denies excessive drowsiness or sleepiness, denies suicidal ideation and reports that the current pain medication is helping to control the pain and improve activities of daily living. Patient denies any motor or sensory deficits. Patient denies any fever or night sweats, denies any change in the bowel movements or urination. Physical Examination: -Constitutional: Cooperative. Not in acute distress . - Neurologic: Cranial nerve II to XII intact. No focal neurological deficits. - Psychatric: Alert & oriented x 3. Matching mood & appropriate affect. Judgment and insight intact. - Musculoskeletal: Cervical spine: Muscle bulk/ tone/ strength in the bilateral upper extremities normal Vertebral body tenderness to palpation over Spurling test positive Distraction test positive Facet loading test positive TTP Thoracic spine Muscle bulk / tone/ strength in the bilateral paraspinal muscles normal Vertebral body tender to palpation over Facet loading test positive TTP Lumbar spine: Motor bulk/ tone/ strength lower extremities , thigh and legs : 5/5 Deep tendon reflexes : Normal Knee Jerk. Normal Ankle Jerk . Vertebral body tenderness to palpation over Stanton Test positive Lumbar Facet Loading Test positive over BL L4-L5, L5-S1 Taut bands w twitch response Straight Leg Raise: positive at 30 degrees right side/ left side Gaenslen's Test positive Sacral spine : Severe tenderness over the Sacroiliac joint: right side / left side Range of motion: Flexion of the lumbar spine <60 degrees Range of motion: Extension of the lumbar spine <20 degrees Gaenslen's Test positive right side / left side Dimitris test: positive right side / left side Thigh Thrust Test positive right side / left side Sacral Thrust Test positive right side / left side Assessment and plan: Chronic LBP secondary to lumbar DDD, spondylosis with facet arthropathy without myelopathy Recommendation of medication management. Mobic 15mg #30 w 2 RF. Would benefit from [facility] referral to orthopedic surgery. 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 Pt is established w joey Akers (sp?) in [place]. All questions answered. I have spent less than 30 minutes on patient care today. Dr Loyola was available by phone for the evaluation of this patient. The time was used to review the medical records including relevant urine studies and Prescription history (MAPs), review of the available imaging, evaluation and examination of the patient, coordination of care with the medical staff and if applicable referring physicians, as well as creation of the medical record PQRS Narrative: Hx Alcohol Use (MH) Yes: I GLASS OF RED WINE DAILY Home Medications: Ambulatory Orders Aspirin [Adult Low Dose Aspirin EC] 162 mg PO BID 11/29/22 Atorvastatin [Lipitor] 80 mg PO DAILY 11/29/22 Calcium Carbonate/Vitamin D3 [Calcium 600 mg-Vit D3 5 mcg (200 unit)] 1 each PO BID 11/29/22 Carboxymethylcellulose Sodium 1 dropper BOTH EYES HS 11/29/22 Clopidogrel [Plavix] 75 mg PO DAILY 11/29/22 Docusate Sodium [Dok] 100 mg PO BID 11/29/22 Finasteride [Proscar] 5 mg PO DAILY 11/29/22 Fluticasone Nasal [place] [Flonase Nasal [place]] 1 spray EA NOSTRIL DAILY PRN 11/29/22 Folic Acid 1 mg PO DAILY 11/29/22 Gabapentin [Neurontin] 400 mg PO BID 11/29/22 Isosorbide Mononitrate [Isosorbide Mononitrate ER] 60 mg PO DAILY 11/29/22 Levothyroxine Sodium [Synthroid] 125 mcg PO DAILY 11/29/22 Lubiprostone [Amitiza] 24 mcg PO BID 11/29/22 [place]-3/Dha/Epa/Fish Oil [Fish Oil 1,000 mg Softgel] 1 cap PO BID 11/29/22 Pantoprazole Sodium [Protonix] 20 mg PO DAILY 11/29/22 Tamsulosin [Flomax] 0.4 mg PO BID 11/29/22 Triamterene-Hctz 37.5-25Mg [Dyazide 37.5-25 Capsule] 1 cap PO DAILY 11/29/22 Venlafaxine HCl [Effexor] 37.5 mg PO HS 11/29/22 bisacodyL [Dulcolax] 5 mg PO DAILY 11/29/22 cycloSPORINE 3 dropper BOTH EYES BID 11/29/22 diphenhydrAMINE HCL 25 mg PO Q6H PRN 11/29/22 Cyanocobalamin (Vitamin B-12) [Vitamin B-12] 1,000 mcg PO DAILY 12/20/22 Sucralfate [Carafate] 2 gm PO BID 12/20/22 polyethylene glycoL 3350 [Miralax] 34 gm PO QAM 12/20/22 Ipratropium (Unknown Dose) 1 dose INHALATION DIRECTED PRN 02/20/23 QUEtiapine [SEROquel] 75 mg PO HS 02/20/23 polyethylene glycoL 3350 [Miralax] 17 gm PO HS 02/20/23 methocarbamoL [Robaxin] 5,000 mg PO BID PRN 30 Days #60 tab 05/07/23 Meloxicam [Mobic] 15 mg PO DAILY 30 Days #30 tab 06/13/23 Controlled Substance Measures - Controlled Substance Measures Is patient prescribed a controlled substance at discharge?: No
== END ==
LOC: PNWHC3 10:59
PROVIDERS: ATTEND Specialist
DX: M51.36 Other intervertebral disc degeneration, lumbar region (principal); M47.816 Spondylosis without myelopathy or radiculopathy, lumbar region; G89.29 Other chronic pain; Z79.82 Long term (current) use of aspirin
CPT/HCPCS: 99211

== ENCOUNTER → 2024-01-04 | Outpatient (CLI) | payer OTHER ==
[2024-01-05 03:43] LABS: Basophils # (A) 0.03 X 10*3/uL (0.00-0.10); Basophils % (A) 0.5 %; Eosinophils # (A) 0.06 X 10*3/uL (0.04-0.35); Eosinophils % (A) 1.1 %; HGB 14.2 g/dL (13.0-17.0); Lymphocytes # (A) 1.32 X 10*3/uL (0.90-5.00); Lymphocytes % (A) 24.1 %; MCHC 34.6 g/dL (32.0-37.0); MCV 98.1 FL (80.0-97.0); Mean Platelet Volume 9.6 FL (9.5-12.2); Monocytes # (A) 0.51 X 10*3/uL (0.20-1.00); Monocytes % (A) 9.3 %; NRBC Per 100 WBC 0 X 10*3/uL (0.00-0.01); Neutrophils # (A) 3.54 X 10*3/uL (1.80-7.70); Neutrophils % (A) 64.8 %; Platelet Count 188 X 10*3/uL (140-440); RBC 4.18 X 10*6/uL (4.40-5.60); RDW 12.8 % (11.5-14.5); WBC 5.47 X 10*3/uL (4.50-10.00)
[2024-01-05 04:43] LABS: BUN/Creat Ratio 19.78 Ratio (12.00-20.00); Blood Urea Nitrogen 17.8 mg/dL (9.0-27.0); Calcium 9.6 mg/dL (8.7-10.3); Carbon Dioxide 28.6 mmol/L (21.6-31.8); Chloride 97 mmol/L (96-109); Glucose 100 mg/dL (70-110); Potassium 4.1 mmol/L (3.5-5.5); Sodium 136 mmol/L (135-145)
== END | disposition home or self-care (01) ==
LOC: LABWHC1 15:52
PROVIDERS: ATTEND Orthopaedic Surgery
DX: M25.562 Pain in left knee (principal)
CPT/HCPCS: 36415; 80048; 85025

== ENCOUNTER 2024-01-11 06:51 | Day surgery (SDC) | payer OTHER ==
[2024-01-11] MEDS ORDERED: MIDAZOLAM 2 MG/2 ML VIAL IV PRN (07:00)
[2024-01-11] MEDS: IV FLUID CONTINUATION 1,000 ML IV ONE (08:01)
[2024-01-11] MEDS: ONDANSETRON 4 MG/2 ML VIAL IVP ONE (08:18)
[2024-01-11] MEDS: DEXAMETHASONE SOD PHOSPHATE 4 MG/ML 1 ML VIAL IV ONE (08:18)
[2024-01-11] MEDS: LACTATED RINGERS 1,000 ML IV SCH (08:18)
[2024-01-11] MEDS ORDERED: PROPOFOL 10 MG/ML 20 ML VIAL IV ONE (08:40)
[2024-01-11] MEDS ORDERED: fentaNYL (PF) 50 MCG/ML 2 ML AMP ONE (08:40)
[2024-01-11] MEDS ORDERED: MIDAZOLAM 2 MG/2 ML VIAL ONE (08:40)
[2024-01-11] MEDS ORDERED: LIDOCAINE 1% INJ 10MG/ML (20 ML MDV) ONE (08:40)
[2024-01-11] MEDS: EPINEPHrine (PF) 1 ML in SODIUM CHLORIDE 0.9% IRRIGATIO 3,000 ML IRRIGATION ONE (09:28)
--- NOTE | 2024-01-11 09:45 | P.OP ---
Date of Procedure: 01/11/24 Preoperative Diagnosis: Left knee internal derangement Postoperative Diagnosis: Left knee posterior lateral meniscal tear/posterior medial meniscal tear/grade 3 chondral injury distal lateral portion lateral femoral condyle Procedure(s) Performed: Left knee arthroscopic partial medial meniscectomy/partial lateral meniscectomy/microfracture lateral femoral condyle Anesthesia: WAYNE Surgeon: Cal Merlos Estimated Blood Loss (ml): 10 Pathology: none sent Condition: stable Disposition: PACU Indications for Procedure: The patient is a 78-year-old male who presents with progressive left knee pain and mechanical symptoms despite conservative measures. A discussion of the risks and benefits of operative intervention versus continued conservative measures was made with the patient. He opted to proceed with surgery. Operative risks include infection, neurovascular injury, development of blood clots, possible incomplete resolution of symptoms, possible worsening of symptoms and need for subsequent procedures was discussed. Informed consent was obtained. Operative Findings: As below Description of Procedure: The patient was brought to the operating room, and after induction of general anesthesia examined the left knee. Collaterals were stable, Zenon was negative, and posterior drawer was negative. The left lower extremity was prepped and draped in a normal fashion. A superior lateral portal was made through a 3 mm skin incision superior and lateral to the patella. This was used for outflow. A large effusion was encountered. A lateral portal was made through a 5 mm vertical skin incision lateral to the patella tendon above the joint line. Diagnostic arthroscopy was performed. On inspection of the medial compartment, a longitudinal tear involving the posterior horn of the medial meniscus in the white-white junction was noted. This was debrided back to stable base with straight baskets and a motorized shaver. The remaining medial meniscus was stable and intact. Grade 2 chondral changes were noted diffusely in the medial compartment. On inspection of the notch, the anterior cruciate ligament appeared to be intact. On inspection of the lateral compartment, an oblique tear involving the lateral posterior meniscal root was noted. This was not amenable to repair. Debrided back to stable base with straight baskets and a motorized shaver. The remaining lateral meniscus was stable and intact. A grade 3 chondral defect involving the distal lateral portion of the lateral femoral condyle was noted. This measured 8 x 8 mm. A chondral pick was utilized to perform microfracture breaching the subchondral surface down to the bone and marrow elements. On inspection of the patellofemoral articulation, there was chondral fibrillation however no loose chondral fragments. The gutters were clear debris. The knee was then thoroughly irrigated. The portals were closed with Steri-Strips. A sterile dressing was applied in addition to a compression stocking. The patient was awoken from general anesthesia and transferred to recovery room in good condition. Blood loss was estimated at 10 mL. No complications were incurred.
[2024-01-11 09:51] VITALS: TEMP 97.1
[2024-01-11] MEDS: HYDROmorphone 0.5 MG/0.5 ML SYRINGE IVP PRN (09:56)
[2024-01-11] MEDS: HYDROcodone/APAP 5-325MG 1 EACH TAB PO PRN (11:15)
[2024-01-11 12:24] VITALS: BP 135/77; PULSE 60; RESP 17
--- NOTE | 2024-01-14 16:00 | P.HPOR ---
History of Present Illness H&P Date: 01/09/24 Chief Complaint: Left knee pain The patient is a 78-year-old retired gentleman who presents with left knee pain after an injury in anywhere of this year. He fell on his knee has had pain ever since. He notes medial pain along with swelling and stiffness. He has been limping. He's tried medications without any relief. He notes locking and giving way. Review of Systems As per HPI Past Medical History Past Medical History: Coronary Artery Disease (CAD), Cancer, GERD/Reflux, Hearing Disorder / Deafness, Hyperlipidemia, Musculoskeletal Disorder, Neurologic Disorder, Sleep Apnea/CPAP/BIPAP Additional Past Medical History / Comment(s): Chronic fracture L4-chronic back pain, enlarged prostate, runs low b/p, uses cpap, hx kidney stones approx 15 yrs ago, hx melanoma right cheek, right eye non hodgkins lymphoma-no vision problems, dry eyes, bilateral hearing aid use, Meniere's, bilateral foot drop, CIDP (Chronic Inflammatory Demyelinating Neuropathy). History of Any Multi-Drug Resistant Organisms: None Reported Past Surgical History: Back Surgery, Heart Catheterization With Stent, Joint Replacement, Orthopedic Surgery Additional Past Surgical History / Comment(s): Heart caths X2, heart stents X2, restented later 1 stent(2 working stents), bilateral rotator cuff repairs, left hip replacement, spinal fusions X2,acl repair X2 right knee, bilateral cataracts removed. Past Anesthesia/Blood Transfusion Reactions: No Reported Reaction Date of Last Stent Placement:: 2020 Past Psychological History: No Psychological Hx Reported Smoking Status: Never smoker Past Alcohol Use History: Daily Additional Past Alcohol Use History / Comment(s): 1 glass red wine daily. Past Drug Use History: None Reported - Past Family History Mother Family Medical History: Cancer Medications and Allergies Home Medications Medication Instructions Recorded Confirmed Type Aspirin [Adult Low Dose Aspirin EC] 162 mg PO BID 11/29/22 01/09/24 History Atorvastatin [Lipitor] 80 mg PO DAILY 11/29/22 01/11/24 History Calcium Carbonate/Vitamin D3 1 each PO BID 11/29/22 01/11/24 History [Calcium 600 mg-Vit D3 5 mcg (200 unit)] Carboxymethylcellulose Sodium 1 dropper BOTH EYES HS 11/29/22 01/11/24 History Clopidogrel [Plavix] 75 mg PO DAILY 11/29/22 01/09/24 History Docusate Sodium [Dok] 100 mg PO BID 11/29/22 01/11/24 History Finasteride [Proscar] 5 mg PO DAILY 11/29/22 01/11/24 History Fluticasone Nasal [place] [Flonase 1 spray EA NOSTRIL DAILY PRN 11/29/22 01/11/24 History Nasal [place]] Folic Acid 1 mg PO DAILY 11/29/22 01/11/24 History Isosorbide Mononitrate [Isosorbide 60 mg PO DAILY 11/29/22 01/11/24 History Mononitrate ER] Levothyroxine Sodium [Synthroid] 125 mcg PO DAILY 11/29/22 01/11/24 History Lubiprostone [Amitiza] 24 mcg PO BID 11/29/22 01/11/24 History Loop-3/Dha/Epa/Fish Oil [Fish Oil 1 cap PO BID 11/29/22 01/09/24 History 1,000 mg Softgel] Pantoprazole Sodium [Protonix] 20 mg PO DAILY 11/29/22 01/11/24 History Tamsulosin [Flomax] 0.4 mg PO BID 11/29/22 01/11/24 History Triamterene-Hctz 37.5-25Mg 1 cap PO DAILY 11/29/22 01/11/24 History [Dyazide 37.5-25 Capsule] Venlafaxine HCl [Effexor] 37.5 mg PO HS 11/29/22 01/11/24 History bisacodyL [Dulcolax] 5 mg PO DAILY 11/29/22 01/11/24 History cycloSPORINE 3 dropper BOTH EYES BID 11/29/22 01/11/24 History diphenhydrAMINE HCL 25 mg PO Q6H PRN 11/29/22 01/09/24 History Cyanocobalamin (Vitamin B-12) 1,000 mcg PO DAILY 12/20/22 01/11/24 History [Vitamin B-12] Sucralfate [Carafate] 2 gm PO BID 12/20/22 01/11/24 History polyethylene glycoL 3350 [Miralax] 34 gm PO QAM 12/20/22 01/11/24 History Ipratropium (Unknown Dose) 1 dose INHALATION DIRECTED PRN 02/20/23 01/11/24 History QUEtiapine [SEROquel] 75 mg PO HS 02/20/23 01/11/24 History polyethylene glycoL 3350 [Miralax] 17 gm PO HS 02/20/23 01/11/24 History Meloxicam [Mobic] 15 mg PO DAILY 30 Days #30 tab 06/13/23 01/09/24 Rx Gabapentin [Neurontin] 200 mg PO BID 01/11/24 01/11/24 History HYDROcodone/APAP 5-325MG [[place] 1 tab PO Q6HR PRN #18 tab 01/11/24 Rx 5-325] Allergies Allergy/AdvReac Type Severity Reaction Status Date / Time No Known Allergies Allergy Verified 01/11/24 07:48 Physical Examination - Knee left Appearance: effusion Effusion grade: grade 3 Tenderness with palpation: anterior, medial, lateral ROM: extension: -15 degrees ROM: flexion: 85 degrees Crepitus with motion: Yes Strength: extension: 5/5 Strength: flexion: 5/5 Meniscal tests: medial meniscal tests: positive, lateral meniscal tests: positive, medial joint line pain: positive, lateral joint line pain: positive Results The patient is a well-developed well-nourished male proximal a 5 foot 11, 214 pounds of more habitus. HEENT exam is nonfocal, neck is supple. He has painless passive motion of the left hip. Straight leg raise is negative. He is tender about the medial and lateral joint line of the left knee. Collaterals stable, Zenon was negative, Meek's elicits medial and lateral pain. He has an antalgic gait pattern. His distal neurovascular exam appears intact in the left lower extremity. - Labs Labs: H & H 01/04/24 Range/Units 15:57 Hgb 14.2 (13.0-17.0) g/dL Hct 41.0 (39.6-50.0) % - Diagnostic results Knee MRI: image reviewed (MRI of the left knee shows evidence of a posterior medial meniscal tear.) Assessment and Plan Assessment: Left knee internal derangement/symptomatic medial meniscal tear History of heart disease on anticoagulation Plan: I talked to the patient at length regarding his condition along with treatment options. At this point he is quite symptomatic despite conservative measures. After a thorough discussion he opts to proceed with surgery. We'll plan to proceed with left knee arthroscopy with probable partial medial meniscectomy. Risks and benefits were discussed at length in layman's terms. We will likely perform that as an outpatient procedure. We will resume his anticoagulation postoperatively.
== END 2024-01-11 12:21 | disposition home or self-care (01) ==
LOC: OR 06:51
PROVIDERS: ATTEND Orthopaedic Surgery
DX: S83.242A Other tear of medial meniscus, current injury, left knee, initial encounter (principal); S83.282A Other tear of lateral meniscus, current injury, left knee, initial encounter; I25.10 Atherosclerotic heart disease of native coronary artery without angina pectoris; K21.9 Gastro-esophageal reflux disease without esophagitis; E78.5 Hyperlipidemia, unspecified; G47.30 Sleep apnea, unspecified; E07.9 Disorder of thyroid, unspecified; I11.9 Hypertensive heart disease without heart failure; Z79.82 Long term (current) use of aspirin; Z79.02 Long term (current) use of antithrombotics/antiplatelets; Z79.899 Other long term (current) drug therapy; Z79.890 Hormone replacement therapy; Z79.1 Long term (current) use of non-steroidal anti-inflammatories (NSAID); W19.XXXA Unspecified fall, initial encounter
CPT/HCPCS: 29879; 29880; J2250; J1100; J0690; J2405; J0171; J2001; J3010; J2704; J1170

== ENCOUNTER → 2024-03-25 | Outpatient (CLI) | payer OTHER ==
[2024-03-25 18:50] LABS: Basophils # (A) 0.03 X 10*3/uL (0.00-0.10); Basophils % (A) 0.5 %; Eosinophils # (A) 0.14 X 10*3/uL (0.04-0.35); Eosinophils % (A) 2.3 %; HCT 40.8 % (39.6-50.0); Lymphocytes # (A) 1.46 X 10*3/uL (0.90-5.00); Lymphocytes % (A) 24.2 %; MCH 34.1 pg (27.0-32.0); MCHC 34.3 g/dL (32.0-37.0); MCV 99.3 FL (80.0-97.0); Mean Platelet Volume 9.6 FL (9.5-12.2); Monocytes # (A) 0.65 X 10*3/uL (0.20-1.00); Monocytes % (A) 10.8 %; NRBC Per 100 WBC 0 X 10*3/uL (0.00-0.01); Neutrophils # (A) 3.74 X 10*3/uL (1.80-7.70); Neutrophils % (A) 61.9 %; Platelet Count 221 X 10*3/uL (140-440); RBC 4.11 X 10*6/uL (4.40-5.60); RDW 12.4 % (11.5-14.5); WBC 6.04 X 10*3/uL (4.50-10.00)
[2024-03-25 19:13] LABS: INR 0.99 sec (0.93-1.11); Prothrombin Time 10.7 sec (9.9-11.9)
[2024-03-25 20:48] LABS: BUN/Creat Ratio 11.25 Ratio (12.00-20.00); Blood Urea Nitrogen 13.5 mg/dL (9.0-27.0); Calcium 9.1 mg/dL (8.7-10.3); Carbon Dioxide 29.5 mmol/L (21.6-31.8); Chloride 96 mmol/L (96-109); Glucose 109 mg/dL (70-110); Potassium 5.4 mmol/L (3.5-5.5); Sodium 135 mmol/L (135-145)
== END | disposition home or self-care (01) ==
LOC: LABPAT 14:00
PROVIDERS: ATTEND Orthopaedic Surgery
DX: Z01.812 Encounter for preprocedural laboratory examination (principal); Z22.322 Carrier or suspected carrier of Methicillin resistant Staphylococcus aureus; M17.12 Unilateral primary osteoarthritis, left knee
CPT/HCPCS: 36415; 80048; 85025; 85610; 87070

== ENCOUNTER 2024-04-01 08:09 | Day surgery (SDC) | payer OTHER ==
--- NOTE | 2024-03-31 09:18 | P.HPOR ---
History of Present Illness H&P Date: 03/31/24 Chief Complaint: Left knee pain The patient is a 78-year-old retired male who presents with aggressive left knee pain for the past year worsening recently. He notes his pain with weightbearing activities along with intermittent giving way. He tried previous medications, injections, and previously underwent arthroscopy in December 2023 with progression of his symptoms. Review of Systems Per HPI Past Medical History Past Medical History: Coronary Artery Disease (CAD), Cancer, GERD/Reflux, Hearing Disorder / Deafness, Hyperlipidemia, Musculoskeletal Disorder, Neurologic Disorder, Sleep Apnea/CPAP/BIPAP Additional Past Medical History / Comment(s): Chronic fracture L4-chronic back pain, enlarged prostate, runs low b/p, uses cpap, hx kidney stones approx 15 yrs ago, hx melanoma right cheek, right eye non hodgkins lymphoma-no vision problems, dry eyes, bilateral hearing aid use, Meniere's, bilateral foot drop, CIDP (Chronic Inflammatory Demyelinating Neuropathy). History of Any Multi-Drug Resistant Organisms: None Reported Past Surgical History: Back Surgery, Heart Catheterization With Stent, Joint Replacement, Orthopedic Surgery Additional Past Surgical History / Comment(s): Heart caths X2, heart stents X2, restented later 1 stent(2 working stents), bilateral rotator cuff repairs, left hip replacement, spinal fusions X2,acl repair X2 right knee, bilateral cataracts removed. Left knee arthroscopy. Past Anesthesia/Blood Transfusion Reactions: No Reported Reaction Date of Last Stent Placement:: 2020 Past Psychological History: No Psychological Hx Reported Smoking Status: Never smoker Past Alcohol Use History: Daily Additional Past Alcohol Use History / Comment(s): 1 glass red wine daily. Past Drug Use History: None Reported - Past Family History Mother Family Medical History: Cancer Medications and Allergies Home Medications Medication Instructions Recorded Confirmed Type Aspirin [Adult Low Dose Aspirin EC] 162 mg PO BID 11/29/22 01/09/24 History Atorvastatin [Lipitor] 80 mg PO DAILY 11/29/22 01/11/24 History Calcium Carbonate/Vitamin D3 1 each PO BID 11/29/22 01/11/24 History [Calcium 600 mg-Vit D3 5 mcg (200 unit)] Carboxymethylcellulose Sodium 1 dropper BOTH EYES HS 11/29/22 01/11/24 History Clopidogrel [Plavix] 75 mg PO DAILY 11/29/22 01/09/24 History Docusate Sodium [Dok] 100 mg PO BID 11/29/22 01/11/24 History Finasteride [Proscar] 5 mg PO DAILY 11/29/22 01/11/24 History Fluticasone Nasal [place] [Flonase 1 spray EA NOSTRIL DAILY PRN 11/29/22 01/11/24 History Nasal [place]] Folic Acid 1 mg PO DAILY 11/29/22 01/11/24 History Isosorbide Mononitrate [Isosorbide 60 mg PO DAILY 11/29/22 01/11/24 History Mononitrate ER] Levothyroxine Sodium [Synthroid] 125 mcg PO DAILY 11/29/22 01/11/24 History Lubiprostone [Amitiza] 24 mcg PO BID 11/29/22 01/11/24 History [place]-3/Dha/Epa/Fish Oil [Fish Oil 1 cap PO BID 11/29/22 01/09/24 History 1,000 mg Softgel] Pantoprazole Sodium [Protonix] 20 mg PO DAILY 11/29/22 01/11/24 History Tamsulosin [Flomax] 0.4 mg PO BID 11/29/22 01/11/24 History Triamterene-Hctz 37.5-25Mg 1 cap PO DAILY 11/29/22 01/11/24 History [Dyazide 37.5-25 Capsule] Venlafaxine HCl [Effexor] 37.5 mg PO HS 11/29/22 01/11/24 History bisacodyL [Dulcolax] 5 mg PO DAILY 11/29/22 01/11/24 History cycloSPORINE 3 dropper BOTH EYES BID 11/29/22 01/11/24 History diphenhydrAMINE HCL 25 mg PO Q6H PRN 11/29/22 01/09/24 History Cyanocobalamin (Vitamin B-12) 1,000 mcg PO DAILY 12/20/22 01/11/24 History [Vitamin B-12] Sucralfate [Carafate] 2 gm PO BID 12/20/22 01/11/24 History polyethylene glycoL 3350 [Miralax] 34 gm PO QAM 12/20/22 01/11/24 History Ipratropium (Unknown Dose) 1 dose INHALATION DIRECTED PRN 02/20/23 01/11/24 History QUEtiapine [SEROquel] 75 mg PO HS 02/20/23 01/11/24 History polyethylene glycoL 3350 [Miralax] 17 gm PO HS 02/20/23 01/11/24 History Meloxicam [Mobic] 15 mg PO DAILY 30 Days #30 tab 06/13/23 01/09/24 Rx Gabapentin [Neurontin] 200 mg PO BID 01/11/24 01/11/24 History HYDROcodone/APAP 5-325MG [[place] 1 tab PO Q6HR PRN #18 tab 01/11/24 Rx 5-325] Allergies Allergy/AdvReac Type Severity Reaction Status Date / Time No Known Allergies Allergy Verified 01/11/24 07:48 Physical Examination - Knee left Appearance: effusion Effusion grade: grade 1 Valgus alignment in stance: 5 degrees Tenderness with palpation: anterior, lateral Pain: throughout ROM Gait: limping ROM: extension: -15 degrees ROM: flexion: 100 degrees Crepitus with motion: Yes Strength: extension: 5/5 Strength: flexion: 5/5 Meniscal tests: lateral meniscal tests: positive, lateral joint line pain: positive Results The patient is a well-developed well-nourished male proximally 5 foot 11, 214 pounds of mesomorphic habitus. HEENT exam is nonfocal, neck is supple. He has painless passive motion of his left hip. Straight leg raise is negative. He's tender about the lateral joint line of the left knee. Collaterals are stable, Zenon was negative, Meek's is equivocal. His distal neurovascular appears intact in the left lower extremity. - Diagnostic results Knee x-ray: image reviewed (X-rays of the left knee obtained in the office show severe lateral compartment osteoarthrosis with subchondral sclerosis and [id number] changes.) Assessment and Plan Assessment: Left knee lateral compartment osteoarthrosis Plan: I talked to the patient at length regarding his condition along with treatment options. At this point is quite symptomatic having pain and mechanical symptoms despite conservative measures. After athorough discussion he opted to proceed with surgery. We will plan to proceed with left total knee arthroplasty. Risks and benefits were discussed at length in layman's terms. We will reinstitute his Plavix postoperatively.
[~2024-04-01 08:09] MED LIST changes: -LACTATED RINGERS 1,000 ML IV SCH; +LIDOCAINE 1% (10MG/ML) FOR IV START INTRADERMA PRN; +TRANEXAMIC 1,000 MG/100ML-NACL 1,000 MG in SALINE 1 100ML.BAG IVPB PRN
[2024-04-01] MEDS: ACETAMINOPHEN TAB 500 MG TAB PO PRN (09:46)
[2024-04-01] MEDS: MELOXICAM 7.5 MG TAB PO PRN (09:47)
[2024-04-01] MEDS: DEXAMETHASONE SOD PHOSPHATE 4 MG/ML 1 ML VIAL IVP STA (09:47)
[2024-04-01] MEDS: ONDANSETRON 4 MG/2 ML VIAL IVP ONE (09:47)
[2024-04-01] MEDS: fentaNYL (PF) 50 MCG/ML 2 ML AMP IVP PRN (10:09)
[2024-04-01] MEDS: MIDAZOLAM 2 MG/2 ML VIAL IV ONE (10:10)
[2024-04-01] MEDS: LACTATED RINGERS 1,000 ML IV SCH (10:13)
[2024-04-01] MEDS: IV FLUID CONTINUATION 1,000 ML IV ONE ×2 (10:15→14:29)
[2024-04-01] MEDS ORDERED: ROPIVACAINE 5 MG/ML 30 ML VIAL ONE (10:17)
[2024-04-01] MEDS ORDERED: GLYCOPYRROLATE 0.2 MG/ML 2 ML VIAL ONE (10:17)
[2024-04-01] MEDS ORDERED: SUCCINYLCHOLINE CHLORIDE 200 MG/10 ML VIAL IV ONE (10:17)
[2024-04-01] MEDS ORDERED: ROCURONIUM 10 MG/ML (5 ML VIAL) IV ONE (10:17)
[2024-04-01] MEDS ORDERED: SODIUM CHLORIDE 0.9% (PF) 10 ML VIAL ONE (10:17)
[2024-04-01] MEDS ORDERED: ePHEDrine 50 MG/ML 1 ML VIAL ONE (10:17)
[2024-04-01] MEDS ORDERED: MIDAZOLAM 2 MG/2 ML VIAL ONE (10:17)
[2024-04-01] MEDS ORDERED: NEOSTIGMINE 1 MG/ML 10 ML VIAL ONE (10:17)
[2024-04-01] MEDS ORDERED: PROPOFOL 10 MG/ML 20 ML VIAL IV ONE (10:17)
[2024-04-01] MEDS ORDERED: HYDROmorphone (PF) 1 MG/ML ONE (10:17)
[2024-04-01] MEDS ORDERED: fentaNYL (PF) 50 MCG/ML 2 ML AMP ONE (10:17)
[2024-04-01] MEDS ORDERED: LIDOCAINE 1% INJ 10MG/ML (20 ML MDV) ONE (10:17)
[2024-04-01] MEDS ORDERED: TRANEXAMIC 1,000 MG/100ML-NACL PREMIX BAG ONE (10:17)
[2024-04-01] MEDS: ceFAZolin 3,000 MG in SODIUM CHLORIDE 0.9% IRRIGATIO 3,000 ML IRRIGATION ONE (10:48)
--- NOTE | 2024-04-01 11:33 | P.ANPRN ---
Procedure Note - Anesthesia - Nerve Block Performed Left Adductor Canal Infusion Time Out Performed: Yes (0955) Date of Procedure: 04/01/24 Procedure Start Time: :56 Procedure Stop Time: 10:01 Location of Patient: PreOp Indication: Acute Post-Operative Pain, Requested by Surgeon Specifically requested for management of pain by : Cal Merlos Sedation Type: Sedate with meaningful contact maintained Preparation: Sterile Prep, Sterile Dressing Position: Supine Catheter Depth at Skin (cm): 6 Catheter: Indwelling Needle Types: Pajunk Needle Gauge: 18 Ultrasound used to visualize needle placement: Yes Ultrasound used to observe medication spread: Yes Injectate: 0.5% Ropivacaine (see comment for volume) (15cc +10cc nacl pf) Blood Aspirated: No Pain Paresthesia on Injection Noted: No Resistance on Injection: Normal Image Stored and Saved: Yes Events: Uneventful and Well Tolerated
--- NOTE | 2024-04-01 11:34 | P.ANPRN ---
Procedure Note - Anesthesia - Nerve Block Performed Left iPack Single Time Out Performed: Yes (0955) Date of Procedure: 04/01/24 Procedure Start Time: : Procedure Stop Time: :07 Location of Patient: PreOp Indication: Acute Post-Operative Pain, Requested by Surgeon Specifically requested for management of pain by DrAlicia: Cal Merlos Sedation Type: Sedate with meaningful contact maintained Preparation: Sterile Prep Position: Supine Catheter: None Needle Types: Pajunk Needle Gauge: 21 Ultrasound used to visualize needle placement: Yes Ultrasound used to observe medication spread: Yes Injectate: 0.5% Ropivacaine (see comment for volume) (15cc +10cc nacl pf) Blood Aspirated: No Pain Paresthesia on Injection Noted: No Resistance on Injection: Normal Image Stored and Saved: Yes Events: Uneventful and Well Tolerated
[2024-04-01] MEDS ORDERED: HYDROmorphone 0.5 MG/0.5 ML SYRINGE IVP PRN (12:05)
[2024-04-01] MEDS ORDERED: hydrOXYzine pamoate 25 MG CAP PO PRN (12:05)
[2024-04-01] MEDS ORDERED: MAGNESIUM HYDROXIDE 2,400 MG/30 ML CUP PO PRN (12:05)
[2024-04-01] MEDS ORDERED: NALOXONE 0.4 MG/ML 1 ML VIAL IV PRN (12:05)
[2024-04-01] MEDS ORDERED: HYDROcodone/APAP 5-325MG 1 EACH TAB PO PRN (12:05)
--- NOTE | 2024-04-01 12:28 | P.OP ---
Date of Procedure: 04/01/24 Preoperative Diagnosis: Left knee severe tricompartmental osteoarthrosis Postoperative Diagnosis: Same Procedure(s) Performed: Left total knee arthroplastycementedcruciate retaining Implants: DePuy attune size 8 cemented femoral component, size 7 cemented tibial component, 10 mm articular surface, 38 mm cemented patellar component. This is a cruciate retaining implant. Anesthesia: [facility] Surgeon: Cal Merlos Reinforcer #1: Diomedes Montiel Estimated Blood Loss (ml): 50 Pathology: none sent Condition: stable Disposition: PACU Indications for Procedure: The patient is a 78-year-old male who presents with progressive left knee pain secondary to osteoarthrosis despite conservative measures. A discussion of the risks and benefits of operative intervention versus continued conservative measures was made with the patient. He opted to proceed with surgery. Operative risks include infection, neurovascular injury, development of blood clots, fracture, possible component loosening/failure and possible need for subs equent procedures was discussed. Informed consent was obtained. Operative Findings: As below Description of Procedure: The patient was brought to the operating room, and after induction of spinal anesthesia the left lower extremity was prepped and draped in a normal fashion. The tourniquet was inflated to 270 mmHg. A longitudinal incision extending 3 finger breaths above the superior pole of the patella extending to the medial aspect the tibial tubercle was then made. The skin and subcutaneous tissues were divided sharply. Electrocautery was used for hemostasis. A medial parapatellar arthrotomy was then performed. The medial soft tissues to include the superficial and deep portions of the medial collateral ligament as well as the medial hamstring tendons were elevated subperiosteally. The proximal medial tibia osteophytes were carefully removed. The patella was everted. The knee was flexed. A portion of the retropatellar fat pad was excised sharply. The anterior cruciate ligament was sacrificed. A starting hole was made in the distal femur 1 cm anterior to the posterior cruciate origin. An intramedullary femoral guide was gently inserted planning on 5 valgus distal cut with 9 mm distal resection. The cutting block was pinned in place. The distal cut was then made. The posterior referencing sizing guide was utilized. 3 of external rotation was built into the system and verified off the trans- epicondylar axis and the posterior condyles. I felt size 8 was most appropriate. The cutting block was pinned in place. The anterior, posterior, and chamfer cuts were then made. The bone fragments were removed. A sulcus cut was then made with the appropriate guide. The trial size 8 femoral component was then placed and was fully seated. There was good anterior to posterior and medial to lateral fit. The distal peg holes were then drilled. The trial component was then removed. Attention was then paid towards preparing the proximal tibia. An extra medullary guide was utilized in line with the tibial shaft and second metatarsal distally. A 7 posterior slope was planned. I planned on 2 mm resection from the medial compartment. The cutting block was pinned in place. The proximal tibial cut was then made. The bone was removed in one fragment. The remnants of the medial and lateral menisci were excised the capsule junction with electrocautery. The tibia sized most appropriately at size 7. The posterior osteophytes off the distal femur were carefully removed with a curved osteotome. The trial tibial and femoral components were placed along with a 10 millimeters articular surface. I was able to obtain full flexion and extension with good stability with varus and valgus stress. After several flexion and extension cycles, the tibial rotation was marked with electrocautery in line with the medial one third of the tibial tubercle. Attention was then paid towards preparing the patella. A patella reamer was utilized taking this down to 14 mm of bone stock. A good flush cut was made. The patella sized most appropriately at 38 millimeters. The peg holes were then drilled. The trial component was placed. The knee was taken through a range of motion. I had good patellofemoral tracking with no hands technique. The trial components were then removed. The tibia was prepared in the appropriate rotation with appropriate drill and keel punch. The flexion and extension gaps were checked and felt to be symmetric. The bony surfaces were prepared with pulsatile lavage and dried. The deep tibial component was then cemented in place and was fully seated. Excess cement was removed. The femoral component was cemented in place and was fully seated. Again excess cement was removed. The trial 10 millimeters surface was then inserted in the knee was put in full extension. The patella component was cemented in place. After the cement had sufficiently hardened, the knee was again taken through a range of motion. Again there was good stability in flexion and extension with varus and valgus stress. The trial articular surface was then removed. The final articular surface was placed and was impacted. Care was taken to avoid any soft tissue interposition. Pulsatile lavage was again utilized. The tourniquet was deflated with approximately 60 minutes total tourniquet time. There was minimal drainage therefore a deep drain was not placed. The medial parapatellar arthrotomy was then closed with #2 Ethibond suture. The subcutaneous tissues were reapproximated interrupted 2-0 Vicryl sutures. The skin was reapproximated with 3-0 subarticular strata fix suture. Skin tape and adhesive was applied. A sterile dressing was applied. The patient was then awoken from sedation and transferred to recovery room in good condition. Blood loss was estimated at 50 milliliters. No complications were incurred. Sponge and needle counts were correct at the end the case. Diomedes DANIEL assisted during the major components this case to include exposure, bone resection, and implantation.
[2024-04-01] MEDS: HYDROmorphone 0.5 MG/0.5 ML SYRINGE IVP PRN ×2 (12:50→18:58)
--- NOTE | 2024-04-01 13:07 | XR ---
EXAMINATION TYPE: XR knee limited LT DATE OF EXAM: 04/01/2024 12:48 PM CLINICAL INDICATION: Male, 78 years old with history of Evaluation for Postop abnormality and alignme nt; [facility] COMPARISON: None. TECHNIQUE: XR knee limited LT; examined in Frontal, lateral projections. FINDINGS: Status post total knee arthroplasty changes with hardware in appropriate alignment and in tact. No evidence of fracture. Subcutaneous lucencies and lucencies within the joint consistent with surgical changes. IMPRESSION: Status post total knee arthroplasty changes with hardware intact and appropriate alignment. No fractu res identified.
[2024-04-01] MEDS: ROPIVACAINE 1,100 MG, SODIUM CHLORIDE 0.9% 500 ML 330 ML, EMPTY PAIN BALL 1 EACH MISCELLANE PRN (13:10)
[2024-04-01] MEDS: HYDROcodone/APAP 7.5-325MG 1 EACH TAB PO PRN (15:41)
[2024-04-01] MEDS ORDERED: diphenhydrAMINE 25 MG CAP PO PRN (19:47)
[2024-04-01] MEDS ORDERED: NON FORMULARY DRUG (Lubiprostone [Amitiza] 24 MCG Capsule) PO SCH (21:00)
[2024-04-01] MEDS: ARTIFICIAL TEARS-HYPROMELLOSE DROPS 15 ML BTL BOTH EYES SCH (21:50)
[2024-04-01] MEDS: cycloSPORINE 0.05% OPHTH 0.4 ML DROPERETTE BOTH EYES SCH (21:51)
[2024-04-01] MEDS: SENNOSIDES-DOCUSATE SODIUM 1 EACH TAB PO SCH (21:51)
[2024-04-01] MEDS: polyethylene glycoL 3350 17 GM POWD.PACK PO SCH (21:52)
[2024-04-01] MEDS: GABAPENTIN 100 MG CAP PO SCH (21:52)
[2024-04-01] MEDS: VENLAFAXINE HCL 37.5 MG TAB PO SCH (22:54)
[2024-04-01] MEDS: QUEtiapine 25 MG TAB PO SCH (22:54)
[2024-04-02] MEDS: SUCRALFATE 1 GM TAB PO SCH (06:33)
[2024-04-02] MEDS: LEVOTHYROXINE 125 MCG TAB PO SCH (06:34)
[2024-04-02] MEDS: PANTOPRAZOLE 40 MG TABLET PO SCH (06:34)
--- NOTE | 2024-04-02 07:49 | P.DS ---
Providers Date of admission: 04/01/2024 Expected date of discharge: 04/02/24 Attending physician: Cal Merlos Consults: 04/01/24 12:05 Consult Physician Routine Consulting Provider: Tamara Curry Consult Reason/Comments: medial management s/p left total knee arthroplasty Do you want consulting provider notified?: Yes Primary care physician: [facility] Course: Date of admission: 04/01/2024 Date of discharge: 04/02/2024 Admission diagnosis: Left knee osteoarthritis Discharge diagnosis: Same Attending physician: Dr. Merlos Surgical procedures: Left total knee arthroplasty Brief history: Patient is a and a 78-year-old male with a history of progressive primary left knee osteoarthritis. At this point patient has failed conservative treatment measures and has opted to proceed with a elective left total knee arthroplasty. Hospital course: Details of patient's surgery can be found in operative report. Patient tolerated the procedure well and was subsequently transported to orthopedic floor. Patient's orthopeidc and medical care was provided daily. Patient had daily laboratory tests performed for evaluation of overall blood counts. Patient had daily physical therapy to include strengthening range of motion as well as education with walker ambulation. Patient was treated with Xarelto for their postoperative DVT prophylaxis during their inpatient stay. Patient was noted to have a relatively uneventful postoperative course. Patient reported satisfactory pain control with oral pain medications by postoperative day 1. Patient showed satisfactory progress with physical therapy. Patient moved steadily through the program and had no difficulty meeting the goals by postoperative day 1. Given patient's otherwise satisfactory course and having met physical therapy goals, plan is to discharge patient home with health services on postoperative day 1. Discharge condition/disposition: Patient will be discharged home with health ser vices in stable condition. Discharge medications: Instructions are given on resumption of patient's normal daily medications per primary care recommendation, in addition patient will be prescribed Martin; senna; Eliquis 2.5 mg twice a day 2 weeks. Discharge instructions: 1. Wound care and infection precautions, keep incision dry and covered while showering, no lotions, creams, moisturizers. No soaking, tubs, pools, hottubs. Do not scrub over the incision. 2. Weight-bear as tolerated with walker / cane until follow-up. 3. Ice and elevate when necessary. Do not exceed 20 minutes per hour with ice pack. 4. Utilize compression sleeve until seen at first follow up appointment. 5. Visiting nursing care. 6. Home physical therapy including home CPM. 7. Pain meds and anticoagulants per prescription. 8. Pain medication has potential to cause constipation. Increase oral fluid and fiber intake. Contact primary care provider if you have not had a bowel movement within 48 hours after discharge 9. No anti-inflammatory medication until discussed at first post operative visit, this including Motrin, Aleve, Mobic, Diclofenac. 10. Follow up in office at 2 weeks postop with Adonay Palacios PA-C / Diomedes Montiel PA-C 11. Follow up with your primary care doctor 7-10 days after discharge. 12. Contact [facility] with any questions, . Assessment: Left knee osteoarthritis Procedures: Left total knee arthroplasty Patient Condition at Discharge: Good Plan - Discharge Summary Discharge Rx Participant: Yes New Discharge Prescriptions: New Apixaban [Eliquis] 2.5 mg PO BID #60 tab Sennosides/Docusate Sodium [Senna Plus 8.6-50 mg Softgel] 1 each PO DAILY #20 capsule HYDROcodone/APAP 7.5-325MG [[place] 7.5-325] 1 - 2 tab PO Q6HR PRN #36 tab PRN Reason: Pain Discontinued Aspirin [Adult Low Dose Aspirin EC] 162 mg PO BID No Action Lubiprostone [Amitiza] 24 mcg PO BID bisacodyL [Dulcolax] 5 mg PO DAILY diphenhydrAMINE HCL 25 mg PO Q6H PRN PRN Reason: Post nasal drip cycloSPORINE 3 dropper BOTH EYES BID [place]-3/Dha/Epa/Fish Oil [Fish Oil 1,000 mg Softgel] 1 cap PO BID Levothyroxine Sodium [Synthroid] 125 mcg PO DAILY Finasteride [Proscar] 5 mg PO DAILY Docusate Sodium [Dok] 100 mg PO BID Carboxymethylcellulose Sodium 1 dropper BOTH EYES HS Cyanocobalamin (Vitamin B-12) [Vitamin B-12] 1,000 mcg PO DAILY Meloxicam [Mobic] 15 mg PO DAILY 30 Days #30 tab Venlafaxine HCl [Effexor] 37.5 mg PO HS Triamterene-Hctz 37.5-25Mg [Dyazide 37.5-25 Capsule] 1 cap PO DAILY Folic Acid 1 mg PO DAILY Atorvastatin [Lipitor] 80 mg PO DAILY Tamsulosin [Flomax] 0.4 mg PO DAILY Pantoprazole Sodium [Protonix] 20 mg PO DAILY Fluticasone Nasal [place] [Flonase Nasal [place]] 1 spray EA NOSTRIL DAILY PRN PRN Reason: Post nasal drip Calcium Carbonate/Vitamin D3 [Calcium 600 mg-Vit D3 5 mcg (200 unit)] 1 each PO DAILY polyethylene glycoL 3350 [Miralax] 34 gm PO QAM Sucralfate [Carafate] 2 gm PO BID polyethylene glycoL 3350 [Miralax] 17 gm PO HS QUEtiapine [SEROquel] 75 mg PO HS Ipratropium (Unknown Dose) 1 spray NASAL DIRECTED PRN PRN Reason: Nasal Symptoms Gabapentin [Neurontin] 200 mg PO BID Multi Vitamin 1 tab PO DAILY Discharge Medication List Atorvastatin [Lipitor] 80 mg PO DAILY 11/29/22 [History] Calcium Carbonate/Vitamin D3 [Calcium 600 mg-Vit D3 5 mcg (200 unit)] 1 each PO DAILY 11/29/22 [History] Carboxymethylcellulose Sodium 1 dropper BOTH EYES HS 11/29/22 [History] Docusate Sodium [Dok] 100 mg PO BID 11/29/22 [History] Finasteride [Proscar] 5 mg PO DAILY 11/29/22 [History] Fluticasone Nasal [place] [Flonase Nasal [place]] 1 spray EA NOSTRIL DAILY PRN 11/29/22 [History] Folic Acid 1 mg PO DAILY 11/29/22 [History] Levothyroxine Sodium [Synthroid] 125 mcg PO DAILY 11/29/22 [History] Lubiprostone [Amitiza] 24 mcg PO BID 11/29/22 [History] [place]-3/Dha/Epa/Fish Oil [Fish Oil 1,000 mg Softgel] 1 cap PO BID 11/29/22 [History] Pantoprazole Sodium [Protonix] 20 mg PO DAILY 11/29/22 [History] Tamsulosin [Flomax] 0.4 mg PO DAILY 11/29/22 [History] Triamterene-Hctz 37.5-25Mg [Dyazide 37.5-25 Capsule] 1 cap PO DAILY 11/29/22 [ History] Venlafaxine HCl [Effexor] 37.5 mg PO HS 11/29/22 [History] bisacodyL [Dulcolax] 5 mg PO DAILY 11/29/22 [History] cycloSPORINE 3 dropper BOTH EYES BID 11/29/22 [History] diphenhydrAMINE HCL 25 mg PO Q6H PRN 11/29/22 [History] Cyanocobalamin (Vitamin B-12) [Vitamin B-12] 1,000 mcg PO DAILY 12/20/22 [History] Sucralfate [Carafate] 2 gm PO BID 12/20/22 [History] polyethylene glycoL 3350 [Miralax] 34 gm PO QAM 12/20/22 [History] Ipratropium (Unknown Dose) 1 spray NASAL DIRECTED PRN 02/20/23 [History] QUEtiapine [SEROquel] 75 mg PO HS 02/20/23 [History] polyethylene glycoL 3350 [Miralax] 17 gm PO HS 02/20/23 [History] Meloxicam [Mobic] 15 mg PO DAILY 30 Days #30 tab 06/13/23 [Rx] Gabapentin [Neurontin] 200 mg PO BID 01/11/24 [History] Multi Vitamin 1 tab PO DAILY 03/31/24 [History] Apixaban [Eliquis] 2.5 mg PO BID #60 tab 04/02/24 [Rx] HYDROcodone/APAP 7.5-325MG [[place] 7.5-325] 1 - 2 tab PO Q6HR PRN #36 tab 04/02/24 [Rx] Sennosides/Docusate Sodium [Senna Plus 8.6-50 mg Softgel] 1 each PO DAILY #20 capsule 04/02/24 [Rx] Follow up Appointment(s)/Referral(s): Diomedes Montiel, COURTNEY [PHYSICIAN HR CLERK] - 2 Weeks Patient Instructions/Handouts: Knee Replacement (DC), Knee Replacement (GEN) Activity/Diet/Wound Care/Special Instructions: Orthopedic Discharge Instructions: 1. Wound care and infection precautions, keep incision dry and covered while showering, no lotions, creams, moisturizers. No soaking, pools, hot tubs. Do not scrub over incision. 2. Weight-bear as tolerated with walker / cane until follow-up. 3. Ice and elevate when necessary. Do not exceed 20 minutes per hour with ice pack. 4. Utilize compression sleeve until seen at first follow up appointment. 5. Pain meds and anticoagulants per prescription. 6. Pain medication has potential to cause constipation. Increase oral fluid and fiber intake. Contact primary care provider if you have not had a bowel movement within 48 hours after discharge. 7. No anti-inflammatory medication until discussed at first post operative visit, this including Motrin, Aleve, Mobic, Diclofenac. 8. Follow up in office at 2 weeks postop with Adonay Palacios PA-C / Diomedes Montiel PA-C 9. Follow up with your primary care doctor 7-10 days after discharge. 10. Contact [facility] with any questions, . Keep incision clean, dry contact. While showering, cover fusion tape with Saran wrap. Keep fusion tape on until follow-up appointment in office in 2 weeks Discharge Disposition: HOME WITH HOME HEALTH SERVICES
--- NOTE | 2024-04-02 07:56 | P.PN ---
Subjective Progress Note Date: 04/02/24 Principal diagnosis: Left knee osteoarthritis Patient was seen at bedside this morning lying semirecumbent position with dressing present over left knee. Patient says he has been applying ice to the knee as needed. He says he is having a lot of spasms behind the knee since stefanie jean. He says he has urinated surgery without issue. He says he has been walking to the bathroom using walker since surgery yesterday. He says he is looking forward to working with therapy today. Patient denies chest pain, fever, shortness of breath, nausea, vomiting, change in vision, loss of bowel/bladder control. Objective - Vital Signs Vital signs: Vital Signs Temp 98.8 F 04/02/24 00:24 Pulse 80 04/02/24 00:24 Resp 18 04/02/24 00:24 BP 109/63 04/02/24 00:24 Pulse Ox 97 04/02/24 00:24 FiO2 Intake & Output 04/01/24 04/02/24 04/02/24 18:59 06:59 18:59 Intake Total 1451 Output Total 50 Balance 1401 Weight 98.9 kg Intake: IV 1451 Output: Estimated Blood Loss 50 Other: Voiding Method Toilet # Voids 1 2 - Exam Left knee: Incision is clean, dry, and intact. The exofin fusion tape is in good condition. There is minimal soft tissue swelling and ecchymosis surrounding the medial and lateral aspects of the incision. Calf is soft, no tenderness with palpation. Plantar flexion, dorsiflexion, EHL, FHL are intact. Sensory exam to light touch throughout the extremity is intact, dorsal pedis pulses 2+. Assessment and Plan Assessment: 1. Left knee osteoarthritis - Postoperative day 1 status post left total knee arthroplasty Plan: 1. Left knee osteoarthritis - left total knee arthroplasty performed yesterday, 04/01/2024. Patient stable at bedside this morning. Patient does have a walker for home. Pending PT/OT eval, discharge home today with health services. 2. Appreciate medical management 3. Pain management - [place] 4. DVT prophylaxis - Xarelto in the hospital. Eliquis twice a day 2 weeks at home 5. GI prophylaxis - senna 6. PT/OT - weightbearing as tolerated with walker 7. Encourage incentive spirometer use 8. Discharge planning - discharge home today with health services Time with Patient: Less than 30
[2024-04-02] MEDS: CYANOCOBALAMIN 500 MCG TAB PO SCH (08:25)
[2024-04-02] MEDS: TAMSULOSIN 0.4 MG CAP.ER.24H PO SCH (08:25)
[2024-04-02] MEDS: MELOXICAM 7.5 MG TAB PO SCH (08:25)
[2024-04-02] MEDS: RIVAROXABAN 10 MG TAB PO SCH (08:26)
[2024-04-02] MEDS: bisacodyL 5 MG TABLET.DR PO SCH (08:27)
[2024-04-02] MEDS: FOLIC ACID 1 MG TAB PO SCH (08:27)
[2024-04-02] MEDS: ATORVASTATIN 80 MG TAB PO SCH (08:27)
[2024-04-02] MEDS: polyethylene glycoL 3350 17 GM POWD.PACK PO SCH (08:27)
[2024-04-02] MEDS: TRIAMTERENE-HCTZ 37.5-25MG 1 EACH CAP PO SCH (08:29)
--- NOTE | 2024-04-02 09:17 | P.PN ---
Progress Note - Text 04/02/24 616am 78-year-old male status post total knee replacement. Patient has an On-Q pump for postop pain control with a solution running at 8 cc an hour with a VAS of 3 at rest. Dressing clean dry and intact. Plan to continue On-Q pump infusion
[2024-04-02 10:37] LABS: Basophils # (A) 0.02 X 10*3/uL (0.00-0.10); Basophils % (A) 0.3 %; Eosinophils # (A) 0.04 X 10*3/uL (0.04-0.35); Eosinophils % (A) 0.6 %; HCT 35.6 % (39.6-50.0); HGB 12.4 g/dL (13.0-17.0); Lymphocytes # (A) 1.17 X 10*3/uL (0.90-5.00); Lymphocytes % (A) 18.9 %; MCHC 34.8 g/dL (32.0-37.0); MCV 100.6 FL (80.0-97.0); Mean Platelet Volume 9.3 FL (9.5-12.2); Monocytes # (A) 0.88 X 10*3/uL (0.20-1.00); Monocytes % (A) 14.2 %; NRBC Per 100 WBC 0 X 10*3/uL (0.00-0.01); Neutrophils # (A) 4.05 X 10*3/uL (1.80-7.70); Neutrophils % (A) 65.7 %; Platelet Count 175 X 10*3/uL (140-440); RBC 3.54 X 10*6/uL (4.40-5.60); RDW 12.9 % (11.5-14.5); WBC 6.18 X 10*3/uL (4.50-10.00)
[2024-04-02 13:51] VITALS: BP 131/71; PULSE 66; RESP 19; TEMP 98.4
--- NOTE | 2024-04-02 14:41 | P.CONS ---
History of Present Illness - History of Present Illness This is a pleasant 78 years old male with multiple medical problems. Patient presents for elective left knee osteoarthritis requiring surgery. He is status post left total knee arthroplasty. Today's postop day #1 Patient sitting up in chair looks comfortable. Denies chest pain or dyspnea. No abdominal pain vomiting. No urinary complaint. He still have some pain in his left knee. But no distress. He is complaining from constipation, he took MiraLAX this morning and he wants more. Patient is hemodynamically stable CBC is reviewed, WBC 6.1, hemoglobin dropped from 14 down to 12.4. Platelet count is normal. No other labs. Patient medications were reviewed in details Review of Systems Review of systems CONSTITUTIONAL: No fever, no malaise, no fatigue. HEENT: No recent visual problems or hearing problems. Denied any sore throat. CARDIOVASCULAR: No orthopnea, PND, no palpitations, no syncope. PULMONARY: No shortness of breath, no cough, no hemoptysis. GASTROINTESTINAL: No diarrhea, no nausea, no vomiting, no abdominal pain. Normoactive bowel sounds. NEUROLOGICAL: No headaches, no weakness, no numbness. HEMATOLOGICAL: Denies any bleeding or petechiae. GENITOURINARY: Denies any burning micturition, frequency, or urgency. MUSCULOSKELETAL/RHEUMATOLOGICAL: Denies any joint pain, swelling, or any muscle pain. ENDOCRINE: Denies any polyuria or polydipsia. 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 History of Any Multi-Drug Resistant Organisms: None Reported Past Surgical History: Back Surgery, Heart Catheterization With Stent, Joint Replacement, Orthopedic Surgery Additional Past Surgical History / Comment(s): Heart caths X2, heart stents X2, restented later 1 stent(2 working stents), bilateral rotator cuff repairs, left hip replacement, spinal fusions X2,acl repair X2 right knee, bilateral cataracts removed. Left knee arthroscopy. TURP Past Anesthesia/Blood Transfusion Reactions: No Reported Reaction Date of Last Stent Placement:: 2020 Past Psychological History: No Psychological Hx Reported Smoking Status: Never smoker Past Alcohol Use History: Daily Additional Past Alcohol Use History / Comment(s): 1 glass red wine daily. Past Drug Use History: None Reported - Past Family History Mother Family Medical History: Cancer Medications and Allergies Home Medications Medication Instructions Recorded Confirmed Type Atorvastatin [Lipitor] 80 mg PO DAILY 11/29/22 03/31/24 History Calcium Carbonate/Vitamin D3 1 each PO DAILY 11/29/22 03/31/24 History [Calcium 600 mg-Vit D3 5 mcg (200 unit)] Carboxymethylcellulose Sodium 1 dropper BOTH EYES HS 11/29/22 03/31/24 History Docusate Sodium [Dok] 100 mg PO BID 11/29/22 03/31/24 History Finasteride [Proscar] 5 mg PO DAILY 11/29/22 03/31/24 History Fluticasone Nasal [place] [Flonase 1 spray EA NOSTRIL DAILY PRN 11/29/22 03/31/24 History Nasal [place]] Folic Acid 1 mg PO DAILY 11/29/22 03/31/24 History Levothyroxine Sodium [Synthroid] 125 mcg PO DAILY 11/29/22 03/31/24 History Lubiprostone [Amitiza] 24 mcg PO BID 11/29/22 03/31/24 History [place]-3/Dha/Epa/Fish Oil [Fish Oil 1 cap PO BID 11/29/22 03/31/24 History 1,000 mg Softgel] Pantoprazole Sodium [Protonix] 20 mg PO DAILY 11/29/22 03/31/24 History Tamsulosin [Flomax] 0.4 mg PO DAILY 11/29/22 03/31/24 History Triamterene-Hctz 37.5-25Mg 1 cap PO DAILY 11/29/22 03/31/24 History [Dyazide 37.5-25 Capsule] Venlafaxine HCl [Effexor] 37.5 mg PO HS 11/29/22 03/31/24 History bisacodyL [Dulcolax] 5 mg PO DAILY 11/29/22 03/31/24 History cycloSPORINE 3 dropper BOTH EYES BID 11/29/22 03/31/24 History diphenhydrAMINE HCL 25 mg PO Q6H PRN 11/29/22 03/31/24 History Cyanocobalamin (Vitamin B-12) 1,000 mcg PO DAILY 12/20/22 03/31/24 History [Vitamin B-12] Sucralfate [Carafate] 2 gm PO BID 12/20/22 03/31/24 History polyethylene glycoL 3350 [Miralax] 34 gm PO QAM 12/20/22 03/31/24 History Ipratropium (Unknown Dose) 1 spray NASAL DIRECTED PRN 02/20/23 03/31/24 History QUEtiapine [SEROquel] 75 mg PO HS 02/20/23 03/31/24 History polyethylene glycoL 3350 [Miralax] 17 gm PO HS 02/20/23 03/31/24 History Meloxicam [Mobic] 15 mg PO DAILY 30 Days #30 tab 06/13/23 03/31/24 Rx Gabapentin [Neurontin] 200 mg PO BID 01/11/24 03/31/24 History Multi Vitamin 1 tab PO DAILY 03/31/24 03/31/24 History Apixaban [Eliquis] 2.5 mg PO BID #60 tab 04/02/24 Rx HYDROcodone/APAP 7.5-325MG [[place] 1 - 2 tab PO Q6HR PRN #36 tab 04/02/24 Rx 7.5-325] Sennosides/Docusate Sodium [Senna 1 each PO DAILY #20 capsule 04/02/24 Rx Plus 8.6-50 mg Softgel] Allergies Allergy/AdvReac Type Severity Reaction Status Date / Time No Known Allergies Allergy Verified 04/01/24 08:58 Physical Exam Vitals: Vital Signs Temp Pulse Resp BP Pulse Ox 04/02/24 13:50 98.4 F 66 19 131/71 98 04/02/24 07:47 97.9 F 61 18 148/80 96 04/02/24 00:24 98.8 F 80 18 109/63 97 04/01/24 19:15 98.2 F 96 18 112/78 94 L 04/01/24 15:05 98.0 F 82 18 131/71 98 Intake and Output 04/01/24 04/02/24 04/02/24 22:59 06:59 14:59 Intake Total 1020 Balance 1020 Intake: Oral 1020 Other: Voiding Method Toilet # Voids 1 2 3 Weight 98.9 kg GENERAL: The patient is alert and oriented x3, not in any acute distress. Well developed, well nourished. HEENT: Pupils are round and equally reacting to light. EOMI. No scleral icterus. No conjunctival pallor. Normocephalic, atraumatic. No pharyngeal erythema. No thyromegaly. CARDIOVASCULAR: S1 and S2 present. No murmurs, rubs, or gallops. PULMONARY: Chest is clear to auscultation, no wheezing , no crackles. ABDOMEN: Soft, nontender, nondistended, normoactive bowel sounds. No palpable organomegaly. MUSCULOSKELETAL: No joint swelling or deformity. -EXTREMITIES: No cyanosis, clubbing, or pedal edema. Left knee wound closed with dressing in place, rest of exam is deferred to surgery team NEUROLOGICAL: Gross neurological examination did not reveal any focal deficits. SKIN: No rashes. no petechiae. Results CBC & Chem 7: 04/02/24 07:04 Labs: Abnormal Lab Results - Last 24 Hours (Table) 04/02/24 Range/Units 07:04 RBC 3.54 L (4.40-5.60) X 10*6/uL Hgb 12.4 L (13.0-17.0) g/dL Hct 35.6 L (39.6-50.0) % MCV 100.6 H (80.0-97.0) [place] MCH 35.0 H (27.0-32.0) pg MPV 9.3 L (9.5-12.2) FL Assessment and Plan Assessment: Osteoarthritis of the left knee status post left TKA. Postop day #1 Postop anemia, mild and expected Constipation, could be related to pain medication Obesity with BMI of 30.4 Plan: Continue with pain management as per surgery team Continue with stool softeners Resume home medication GI prophylaxis DVT prophylaxis is deferred to surgery team We recommend patient to follow-up with PCP in 1 week after discharge
== END 2024-04-02 16:10 | disposition home health service (06) ==
LOC: OR 08:09 → 4SSUR 12:15 → OR 04-02 16:10
PROVIDERS: ATTEND Orthopaedic Surgery
DX: M17.12 Unilateral primary osteoarthritis, left knee (principal); D64.9 Anemia, unspecified; E66.9 Obesity, unspecified; E78.5 Hyperlipidemia, unspecified; G47.30 Sleep apnea, unspecified; G89.18 Other acute postprocedural pain; I25.10 Atherosclerotic heart disease of native coronary artery without angina pectoris; K21.9 Gastro-esophageal reflux disease without esophagitis; G61.81 Chronic inflammatory demyelinating polyneuritis; Z68.30 Body mass index [BMI] 30.0-30.9, adult; Z79.01 Long term (current) use of anticoagulants; Z79.02 Long term (current) use of antithrombotics/antiplatelets; Z79.1 Long term (current) use of non-steroidal anti-inflammatories (NSAID); Z79.621 Long term (current) use of calcineurin inhibitor; Z79.82 Long term (current) use of aspirin; Z79.890 Hormone replacement therapy; Z79.899 Other long term (current) drug therapy; Z85.820 Personal history of malignant melanoma of skin; Z86.718 Personal history of other venous thrombosis and embolism; Z95.5 Presence of coronary angioplasty implant and graft; Z87.442 Personal history of urinary calculi; Z90.79 Acquired absence of other genital organ(s)
CPT/HCPCS: 64448; 64999; 85025